=== PATIENT | female | born 1945 | race Caucasian/White ===

== ENCOUNTER → 2020-10-29 14:24 | Outpatient (ROUT) | payer MEDICARE, MEDICAID, SELFPAY ==
[2020-10-29 14:38] LABS: Appearance Urine UA SL CLOUDY; Bilirubin Urine UA NEGATIVE (NEGATIVE); Color Urine UA YELLOW; Glucose Urine UA NEGATIVE (Negative); Ketones Urine UA NEGATIVE (NEGATIVE); Leukocyte Esterase Urine UA 3+ (NEGATIVE); Nitrite Urine UA NEGATIVE (Negative); Occult Blood Urine UA 1+ (Negative); Protein Urine UA NEGATIVE (Negative); Urobilinogen Urine UA 0.2 E.U./dL (0.2)
[2020-10-29 14:47] LABS: RBC Urine >100/HPF (0-5/HPF)
[2020-10-29 14:48] LABS: Bacteria Urine Few (2-10); Culture Indicated Urine Specimen Cultured; WBC Urine 1-5/HPF (0-5/HPF)
== END ==
PROVIDERS: Visit Provider Internal Medicine
DX: R30.0 Dysuria (principal); R39.15 Urgency of urination; R35.0 Frequency of micturition
CPT/HCPCS: 81001; 87086

== ENCOUNTER → 2020-11-16 08:00 | Outpatient (ROUT) | payer MEDICARE, MEDICAID, SELFPAY ==
[2020-11-16 08:22] LABS: Add Manual Diff / Slide Review NO; Basophils Absolute Auto 0 /uL (0-100); Basophils Percent Auto 0.7 % (0-2); Eosinophils Absolute Auto 100 /uL (0-450); Eosinophils Percent Auto 2.1 % (2-4); Hemoglobin 14.5 g/dL (12.0-16.0); Lymphocytes Absolute Auto 1800 /uL (1100-4500); Lymphocytes Percent Auto 36.1 % (25-40); Mean Corpuscular Hemoglobin 32.9 PG (26-34); Mean Corpuscular Volume 99.7 fL (80-100); Monocytes Absolute Auto 400 /uL (0-900); Monocytes Percent Auto 7.6 % (3-14); Neutrophils Absolute Auto 2600 /uL (1500-7000); Neutrophils Percent Auto 53.5 % (50-75); Platelet Count 253 X10^3/uL (150-400); Red Blood Cell Count 4.42 X10^6/uL (4.0-5.2); White Blood Cell Count 4.9 X10^3/uL (4.5-11.0)
[2020-11-16 08:47] LABS: Alanine Aminotransferase 13 IU/L (<35); Albumin 4.1 g/dL (3.5-5.0); Albumin Globulin Ratio 1.5 (1.0-2.8); Alkaline Phosphatase 55 U/L (38-126); Aspartate Aminotransferase 28 IU/L (14-36); BUN Creatinine Ratio 18.2 (6-22); Bilirubin Total 0.8 mg/dL (0.2-1.3); Blood Urea Nitrogen 14 mg/dL (7-17); Calcium 9.2 mg/dL (8.4-10.2); Carbon Dioxide 30 mmol/L (22-32); Chloride 104 mmol/L (98-107); Cholesterol 105 mg/dL (140-199); Estimated Glomerular Filt Rate > 60.0 mL/min (>60); Globulin 2.8 g/dL (1.7-4.1); Glucose 86 mg/dL (80-110); HDL Cholesterol 41 mg/dL (40-60); HEMOLYSIS 17 (0-50); LDL Cholesterol Calculated 41 mg/dL (<100); Potassium 3.8 mmol/L (3.4-5.1); Sodium 138 mmol/L (137-145); Total Protein 6.9 g/dL (6.3-8.2); Triglycerides 113 mg/dL (35-150)
== END ==
PROVIDERS: Visit Provider Nurse Practitioner Family
DX: E78.5 Hyperlipidemia, unspecified (principal); I10 Essential (primary) hypertension; Z51.81 Encounter for therapeutic drug level monitoring
CPT/HCPCS: 36415; 80053; 80061; 85025

== ENCOUNTER → 2021-01-06 09:26 | Outpatient (CLI) | payer MEDICARE, MEDICAID, SELFPAY ==
--- NOTE | 2021-01-06 | DI.ECHO.S_ITS ---
[place] [facility] +---------+ : : [address] : [address] : : : : [id number] : : : : Phone: [phone] Echocardiogram Report + + :Name: CAT NEVAREZ Study Date: 01/06/2021 Height: 55 in : :[facility] ReadingLocation: Weight: 115 lb : : Gender: Female BSA: 1.4 m2 : :: 1945 Age: 75 yrs BP: 118/79 mmHg: :Reason For Study: ATRIAL FIBRILLATION : :Ordering Physician: MAGALI, : :BILL Performed By: Rashida Pablo : :Referring: BILL DE LOS SANTOS : + + Interpretation Summary Normal sinus rhythm. Normal left ventricular size and wall thickness with moderately reduced systolic function (EF 35-40%). Global hypokinesis with akinesis of inferolateral wall and basal inferior wall. Normal chamber sizes. Mild AI, otherwise no significant valvular abnormalities. Compared to prior study 05/11/2020 no changes have occurred. Procedure: A two-dimensional transthoracic echocardiogram with color flow and Doppler was performed. The study quality was technically adequate. Comparison is made with the echocardiogram of 03/21/2018. The patient was in sinus rhythm with heart rates between 58-62 bpm during the exam. Left Ventricle: The left ventricle is normal in size and wall thickness. The ejection fraction is estimated to be 40-45%. Right Ventricle: The right ventricle is normal in size and function. Atria: The left atrial size is normal. Right atrial size is normal. There is no Doppler evidence for an interatrial shunt. Mitral Valve: The mitral valve is normal in structure and function. There is mild mitral regurgitation. Aortic Valve: The aortic valve opens well. There is no aortic valve stenosis. There is mild aortic regurgitation. Tricuspid Valve: The tricuspid valve is normal in structure and function. There is mild tricuspid regurgitation. Pulmonary artery pressures cannot be estimated because of the lack of a measurable TR jet velocity but the IVC suggests a CVP of around 27 mmHg. Pulmonic Valve: The pulmonic valve is not well visualized. There is no pulmonic valvular regurgitation. Great Vessels: The aortic root is normal size. The ascending aorta is mildly enlarged. The IVC is of normal diameter and collapses greater than 50% with a sniff. This suggests a low right atrial pressure of 3 mm Hg. Pericardium/ Pleura There is no pericardial effusion. There is no pleural effusion. MMode/2D Measurements & Calculations LVIDd: 5.5 cm LVOT diam: 2.0 cm LVIDs: 4.4 cm Ao root diam: 3.4 cm FS: 20.1 % asc Aorta Diam: 3.9 cm IVSd: 1.2 cm Ao Arch Diam (Prox Trans): 2.6 cm LVPWd: 0.67 cm LV sahu. diameter/BSA (cm/m^2): 4.0 LV sys. diameter/BSA (cm/m^2): 3.2 LA A2 area: 15.6 cm2 RA long axis: 4.5 cm LA A4 area: 15.4 cm2 RA area: 10.5 cm2 LA length (vol): 5.0 cm RA vol: 20.7 ml LA vol: 41.2 ml RA : 15.0 ml/m2 LA vol index: 29.8 ml/m2 IVC diam: 1.4 cm RVD2 (mid): 2.8 cm TAPSE: 2.0 cm Doppler Measurements & Calculations Ao V2 max: 157.3 cm/sec LVOT Max Adrian: 84.6 cm/sec Ao V2 mean: 111.5 cm/sec LV V1 max P.9 mmHg Ao max P.9 mmHg LV V1 VTI: 19.5 cm Ao mean P.6 mmHg FRANCHESCA(I,D): 2.0 cm2 Ao V2 VTI: 31.4 cm FRANCHESCA(V,D): 1.7 cm2 sev ratio: 0.62 FRANCHESCA indexed to BSA (cm^2/m^2): 1.4 AI P1/2t: 844.1 msec AI dec slope: 131.7 cm/sec2 MV E max adrian: 41.4 cm/sec TR max adrian: 243.8 cm/sec MV A max adrian: 82.6 cm/sec TR max P.8 mmHg MV E/A: 0.50 PA V2 max: 114.4 cm/sec Med Peak E' Adrian: 4.6 cm/sec PA V2 mean: 77.0 cm/sec E/E' med: 9.0 PA mean P.7 mmHg Lat Peak E' Adrian: 5.3 cm/sec PA pr(Accel): 39.6 mmHg E/E' lat: 7.9 E/e' average: 8.5 MV dec time: 0.26 sec SV(LVOT): 62.8 ml Electronically signed by: Andie Huitron M.D. on Reading Physician:01/07/2021 12:19 AM
== END ==
PROVIDERS: PCP Nurse Practitioner Gerontology; Referring Provider Nurse Practitioner Gerontology; Visit Provider Nurse Practitioner Gerontology
DX: I08.3 Combined rheumatic disorders of mitral, aortic and tricuspid valves (principal); I48.91 Unspecified atrial fibrillation; I42.8 Other cardiomyopathies; I73.9 Peripheral vascular disease, unspecified; I77.89 Other specified disorders of arteries and arterioles
CPT/HCPCS: 93306

== ENCOUNTER 2021-05-02 12:56 | Observation (INO) | payer MEDICARE, MEDICAID, SELFPAY ==
[2021-05-02] VITALS (9 sets, daily range): BP systolic 130–162; BP diastolic 63–96; PULSE 80–101; RESP 18–24; TEMP 36–38.8; O2SAT 94–100; BMI 24.5
--- NOTE | 2021-05-02 12:56 | DI.CT.S_ITS ---
PROCEDURE: CT ANGIO HEAD AND NECK INDICATIONS: code stroke TECHNIQUE: Pre-contrast 4.5 mm thick sections acquired from the foramen magnum to the vertex. After the administration of intravenous contrast, 1 mm thick sections acquired from the aortic arch through the [place]. Post-contrast 4.5 mm thick sections then re-acquired from the foramen magnum to the vertex. 3-dimensional fnizlop-xsblulqut-ulpyihokjq (MIP) and/or volume rendering reformats were acquired of the central intracranial vasculature and neck separately. COMPARISON: [facility], CT, CT STROKE, 05/02/2021, 12:59. FINDINGS: Image quality: Excellent. BRAIN: CSF spaces: There is ex vacuo dilatation seen of the right lateral ventricle. Basal cisterns are patent. No extra-axial fluid collections. Brain: Volume loss is again seen within the right frontal lobe. Small remote infarcts can be seen involving the left basal ganglia, including the left caudate head. No midline shift. No intracranial bleeds or masses. Grimes-white matter interface appears intact. Skull and face: Calvarium and facial bones appear intact, without suspicious lesions. Orbits appear normal. Sinuses: Sinuses and mastoids are clear. HEAD CT ANGIOGRAPHY: Anterior circulation: Intracranial internal carotid arteries are normal in size and flow. The flow within the paired anterior cerebral arteries is normal and symmetric. The flow within the middle cerebral arteries is normal and symmetric. The anterior communicating artery is seen. No aneurysms are seen. Posterior circulation: Visualized portions of the vertebral arteries demonstrate normal caliber, and join to form a normal appearing basilar artery. Flow within the posterior cerebral arteries is normal and symmetric. No aneurysms are seen. NECK CT ANGIOGRAPHY: Carotid system: The great vessels demonstrate a conventional anatomy as they arise from the aortic arch. The origins of the common carotid arteries appear patent. The common carotid arteries demonstrate normal caliber and courses. The bifurcation regions are both widely patent. The internal carotid arteries demonstrate normal calibers and courses. Posterior circulation: The origins of the vertebral arteries both appear widely patent. The more superior extracranial portions of both vertebral arteries also demonstrate normal courses and calibers. They join to form a normal appearing basilar artery. Soft tissues: Visualized neck soft tissues demonstrate no suspicious abnormalities. Bones: No suspicious bony lesions. Visualized cervical spine appears normally aligned. Moderate to prominent cervical spine degenerative changes are seen. IMPRESSION: No significant intracranial arterial abnormality is seen. Within the arteries of the neck, no hemodynamically significant stenosis can be seen. Remote right frontal lobe infarction, with volume loss and associated ex vacuo dilatation of the right lateral ventricle. Small remote infarcts can be seen involving the left basal ganglia, including the left caudate head. Incidental note is made of: At least moderate cervical spine degenerative change Any quantitative measurements of stenosis were performed using NASCET criteria. Dictated by: Praveen Coulter M.D. on 05/02/2021 at 12:37 Approved by: Praveen Coulter M.D. on 05/02/2021 at 12:42
--- NOTE | 2021-05-02 12:56 | DI.CT.S_ITS ---
PROCEDURE: CT STROKE INDICATIONS: code stroke TECHNIQUE: Noncontrast 4.5 mm thick angled axial sections acquired from the foramen magnum to the vertex, with coronal reformats. For radiation dose reduction, the following was used: automated exposure control, adjustment of mA and/or kV according to patient size. COMPARISON: None. FINDINGS: Image quality: Excellent. CSF spaces: Basal cisterns are patent. No extra-axial fluid collections. Anterior horn of the right lateral ventricle is prominent which could represent presence of intraventricular arachnoid cyst, congenital asymmetry or sequela of old right frontal infarct. Brain: No intracranial bleeds or masses. Small chronic lacunar infarcts noted in the basal ganglia, the left internal capsule in the left caudate head. There is mild cerebral volume loss for age, with resultant ventricular and sulcal prominence. There are severe periventricular and deep white matter chronic small vessel ischemic changes. There is intracranial internal carotid artery and vertebral artery atherosclerosis. Skull and face: Calvarium and visualized facial bones appear intact, without suspicious lesions. Sinuses: Visualized sinuses and mastoids are clear. IMPRESSION: 1. No acute intracranial disease process. 2. Findings telephoned to Dr. Farrell on May 02, 2021 at 1:22 p.m. This study fulfills neurological imaging criteria for inclusion or exclusion of acute stroke therapies based on available published neurological guidelines. Dictated by: Flaca Man MD, PhD on 05/02/2021 at 13:24 Approved by: Flaca Man MD, PhD on 05/02/2021 at 13:29
[2021-05-02 13:13] LABS: Add Manual Diff / Slide Review NO; Basophils Absolute Auto 0 /uL (0-100); Basophils Percent Auto 0.5 % (0-2); Eosinophils Absolute Auto 100 /uL (0-450); Eosinophils Percent Auto 1.1 % (2-4); Hematocrit 44.8 % (36-46); Hemoglobin 15.6 g/dL (12.0-16.0); Lymphocytes Absolute Auto 1900 /uL (1100-4500); Lymphocytes Percent Auto 25.1 % (25-40); Mean Corpuscular HGB Conc 34.8 % (30-36); Mean Corpuscular Volume 97.8 fL (80-100); Monocytes Absolute Auto 500 /uL (0-900); Monocytes Percent Auto 7.2 % (3-14); Neutrophils Absolute Auto 5100 /uL (1500-7000); Neutrophils Percent Auto 66.1 % (50-75); Platelet Count 300 X10^3/uL (150-400); Red Blood Cell Count 4.58 X10^6/uL (4.0-5.2); Red Cell Distribution Width 13.2 % (11.6-14.8); White Blood Cell Count 7.7 X10^3/uL (4.5-11.0)
--- NOTE | 2021-05-02 13:17 | ED_ITS ---
HPI - General Adult General Chief complaint: Neuro Symptoms/Deficit Stated complaint: code Stroke Time Seen by Provider: 05/02/21 12:56 Source: EMS Mode of arrival: EMS Limitations: altered mental status History of Present Illness HPI narrative: Patient is a 75-year-old female who arrived as a code stroke. Has reported that at noon today was her last known normal. She was at a nursing facility. Unsure as to why she was at this facility. She was scheduled to be discharged today. The nursing staff went back into her room and fell the patient mumbling and not making sense. EMS was called. Blood sugar greater than 100 prior to arrival. No family at bedside. Related Data Home Medications Medication Instructions Recorded Confirmed acetaminophen 325 mg tablet 325 mg PO Q6HR PRN 05/02/21 05/02/21 alendronate 70 mg tablet 70 mg PO WEEKLY 05/02/21 05/02/21 apixaban 5 mg tablet (Eliquis) 5 mg PO BID 05/02/21 05/02/21 atorvastatin 40 mg tablet 40 mg PO DAILY 05/02/21 05/02/21 carvedilol 6.25 mg tablet 6.25 mg PO BID 05/02/21 05/02/21 docusate sodium 100 mg capsule 100 mg PO BID 05/02/21 05/02/21 famotidine 20 mg tablet 20 mg PO BID 05/02/21 05/02/21 ferrous sulfate 325 mg (65 mg 325 mg PO DAILY 05/02/21 05/02/21 iron) tablet (FeroSul) lisinopril 5 mg tablet 5 mg PO DAILY 05/02/21 05/02/21 oxybutynin chloride 5 mg tablet 5 mg PO BID 05/02/21 05/02/21 polyethylene glycol 3350 17 17 g PO DAILY PRN 05/02/21 05/02/21 gram/dose oral powder tramadol 50 mg tablet 50 mg PO BID PRN 05/02/21 05/02/21 trazodone 50 mg tablet 25 mg PO BEDTIME 05/02/21 05/02/21 Allergies Allergy/AdvReac Type Severity Reaction Status Date / Time No Known Drug Allergies Allergy Verified 05/02/21 16:54 Review of Systems Review of Systems ROS Unobtainable: Unobtainable due to mental condition Patient History Social History Smoking Status: Never smoker alcohol intake: never Exam Initial Vital Signs Initial Vital Signs: Vital Signs Temperature 96.8 F L 05/02/21 12:55 Pulse Rate 80 05/02/21 12:55 Respiratory Rate 20 05/02/21 12:55 Blood Pressure 137/65 05/02/21 12:55 Pulse Oximetry 100 05/02/21 12:55 HENMT Head: normal to inspection and normocephalic Eyes General: appearance normal, both eyes and all related structures Pupils: PERRL Resp Effort & Inspection: normal respiratory effort Auscultation: clear to auscultation bilaterally Cardio Rate: regular rate Rhythm: regular rhythm GI Inspection: normal to inspection and non-distended Skin General: no rashes or lesions noted Neuro General: patient awake, moves all extremities and patient confused Cognition: abnormal cognition Speech: abnormal speech Extrem General: normal to inspection and No edema Psych Appearance: grossly normal and well kempt Scores GCS Dulce coma scale eye opening: Spontaneous Dulce coma scale verbal response: Words [place] coma scale motor response: Localising Dulce coma scale total score: 12 Course Orders Ordered: ED Orders 05/02/21 12:[address] angio head and neck Stat 05/02/21 13:09 Complete Blood Count AUTO DIFF Stat Comprehensive Metabolic Panel Stat Ethanol (ETOH) Stat Lipase Stat Magnesium Stat Partial Thromboplastin Time Stat Prothrombin Time INR Stat 05/02/21 13:14 EKG-12 Lead Stat 05/02/21 13:19 COVID19 -Nasal swab/Pre-Proc Stat Acetaminophen (Acetaminophen 650 Mg Supp) 650 mg DC Q4HR PRN PRN Reason: Fever/Mild Pain (1-3) Aspirin (Aspirin 300 Mg Supp) 300 mg DC DAILY DANNY Last Admin: 05/02/21 17:16 Dose: 300 mg Documented by: CPETRIC Aspirin (Aspirin Ec 81 Mg Tablet) 81 mg PO DAILY [facility] Atorvastatin Calcium (Atorvastatin 20 Mg Tablet) 80 mg PO BEDTIME [facility] Enoxaparin Sodium (Enoxaparin 40 Mg/0.4 Ml Syringe) 40 mg SUBCUT DAILY [facility] Haloperidol (Haloperidol 5 Mg/Ml Vial) 2 mg IV Q4HR PRN PRN Reason: Agitation Lorazepam (Lorazepam 2 Mg/Ml Inj) 0.5 mg IV Q4HR PRN PRN Reason: Anxiety Last Admin: 02/21/22 17:16 Dose: 0.5 mg Documented by: CPETRIC Ondansetron HCl (Ondansetron 4 Mg/2 Ml Inj) 4 mg IV Q8HR PRN PRN Reason: Nausea And Vomiting Sodium Chloride (Sodium Chloride 0.9% Flush) 10 ml IV PRN PRN PRN Reason: Flush Last Admin: 05/02/21 17:26 Dose: 10 ml Documented by: CPETRIC Sodium Chloride (Sodium Chloride 0.9% Flush) 10 ml IV BID DANNY Discontinued Medications Sodium Chloride (Normal Saline 0.9%) 1,000 mls @ 125 mls/hr IV CONT DANNY Last Admin: 05/02/21 16:58 Dose: Not Given Documented by: CPETRIC Vital Signs Vital signs: Vital Signs - 8 hr 05/02/21 12:55 05/02/21 14:17 Temperature 96.8 F L Pulse Rate 80 93 H Respiratory Rate 20 20 Blood Pressure 137/65 150/96 H Pulse Oximetry 100 99 Medical Decision Making Lab Data Lab results reviewed: Yes I reviewed the patient's lab results. Result diagrams: 05/02/21 13:09 05/02/21 13:09 Labs: Lab Results 05/02/21 05/02/21 05/02/21 Range/Units 13:09 13:09 13:09 WBC 7.7 (4.5-11.0) X10^3/uL RBC 4.58 (4.0-5.2) X10^6/uL Hgb 15.6 (12.0-16.0) g/dL Hct 44.8 (36-46) % MCV 97.8 (80-100) fL MCH 34.0 (26-34) PG MCHC 34.8 (30-36) % RDW 13.2 (11.6-14.8) % Plt Count 300 (150-400) X10^3/uL Neut % (Auto) 66.1 (50-75) % Lymph % (Auto) 25.1 (25-40) % [place] % (Auto) 7.2 (3-14) % Eos % (Auto) 1.1 L (2-4) % Baso % (Auto) 0.5 (0-2) % Neut # (Auto) 5100 (2201-2157) /uL Lymph # (Auto) 1900 (5908-1472) /uL [place] # (Auto) 500 (0-900) /uL Eos # (Auto) 100 (0-450) /uL Baso # (Auto) 0 (0-100) /uL PT 13.6 H (10.1-12.7) SECONDS INR 1.2 (0.9-1.3) APTT 41 H (26.4-36.2) SECONDS Sodium 137 (137-145) mmol/L Potassium 3.9 (3.4-5.1) mmol/L Chloride 102 (98-107) mmol/L Carbon Dioxide 29 (22-32) mmol/L BUN 15 (7-17) mg/dL Creatinine 0.84 (0.52-1.04) mg/dL Estimated GFR > 60.0 (>60) mL/min BUN/Creatinine Ratio 17.9 (6-22) Glucose 116 H (80-110) mg/dL Calcium 9.7 (8.4-10.2) mg/dL Magnesium (1.6-2.3) mg/dL Total Bilirubin 0.9 (0.2-1.3) mg/dL AST 35 (14-36) IU/L ALT 24 (<35) IU/L Alkaline Phosphatase 87 (38-126) U/L Total Protein 8.1 (6.3-8.2) g/dL Albumin 4.6 (3.5-5.0) g/dL Globulin 3.5 (1.7-4.1) g/dL Albumin/Globulin Ratio 1.3 (1.0-2.8) Lipase (23-300) U/L Ethyl Alcohol < 10 ( - 10) mg/dL SARS-CoV-2 (PCR) (Negative) 05/02/21 05/02/21 Range/Units 13:09 13:19 WBC (4.5-11.0) X10^3/uL RBC (4.0-5.2) X10^6/uL Hgb (12.0-16.0) g/dL Hct (36-46) % MCV (80-100) fL MCH (26-34) PG MCHC (30-36) % RDW (11.6-14.8) % Plt Count (150-400) X10^3/uL Neut % (Auto) (50-75) % Lymph % (Auto) (25-40) % [place] % (Auto) (3-14) % Eos % (Auto) (2-4) % Baso % (Auto) (0-2) % Neut # (Auto) (5319-9728) /uL Lymph # (Auto) (1614-4733) /uL [place] # (Auto) (0-900) /uL Eos # (Auto) (0-450) /uL Baso # (Auto) (0-100) /uL PT (10.1-12.7) SECONDS INR (0.9-1.3) APTT (26.4-36.2) SECONDS Sodium (137-145) mmol/L Potassium (3.4-5.1) mmol/L Chloride (98-107) mmol/L Carbon Dioxide (22-32) mmol/L BUN (7-17) mg/dL Creatinine (0.52-1.04) mg/dL Estimated GFR (>60) mL/min BUN/Creatinine Ratio (6-22) Glucose (80-110) mg/dL Calcium (8.4-10.2) mg/dL Magnesium 2.1 (1.6-2.3) mg/dL Total Bilirubin (0.2-1.3) mg/dL AST (14-36) IU/L ALT (<35) IU/L Alkaline Phosphatase (38-126) U/L Total Protein (6.3-8.2) g/dL Albumin (3.5-5.0) g/dL Globulin (1.7-4.1) g/dL Albumin/Globulin Ratio (1.0-2.8) Lipase 84 (23-300) U/L Ethyl Alcohol ( - 10) mg/dL SARS-CoV-2 (PCR) Negative (Negative) Point of Care Testing Glucose POC 92 Point of care testing: Point of Care Testing Glucose POC [address] scan - head: Radiologist's Impression: [address] [address] [address] Scan Report Signed Patient: Johanne Reynolds MR#: [id number] : 1945 Acct:[id number] Age/Sex: 75 / F Date of Service: 05/02/21 Loc: 208-1 Accession Number: [id number] ?? Procedure: CT Stroke Ordering Provider: Ld Farrell D.O. PROCEDURE:? CT STROKE ? INDICATIONS:? code stroke ? TECHNIQUE:? Noncontrast 4.5 mm thick angled axial sections acquired from the foramen magnum to the vertex, with coronal reformats.? For radiation dose reduction, the following was used:? automated exposure control, adjustment of mA and/or kV according to patient size.? ? COMPARISON:? None. ? FINDINGS:? Image quality:? Excellent.? ? CSF spaces:? Basal cisterns are patent.? No extra-axial fluid collections.? Anterior horn of the right lateral ventricle is prominent which could represent presence of intraventricular arachnoid cyst, congenital asymmetry or sequela of old right frontal infarct. ? Brain:? No intracranial bleeds or masses.? Small chronic lacunar infarcts noted in the basal ganglia, the left internal capsule in the left caudate head.? There is mild cerebral volume loss for age, with resultant ventricular and sulcal prominence.? There are severe periventricular and deep white matter chronic small vessel ischemic changes.? There is intracranial internal carotid artery and vertebral artery atherosclerosis.? ? Skull and face:? Calvarium and visualized facial bones appear intact, without suspicious lesions.? ? Sinuses:? Visualized sinuses and mastoids are clear.? ? ? IMPRESSION:? ? 1. No acute intracranial disease process.? ? 2. Findings telephoned to Dr. Farrell on May 02, 2021 at 1:22 p.m.? ? ? This study fulfills neurological imaging criteria for inclusion or exclusion of acute stroke therapies based on available published neurological guidelines.? ? ? Dictated by: Flaca Mna MD, PhD on 05/02/2021 at 13:24 ? ? Approved by: Flaca Man MD, PhD on 05/02/2021 at 13:29? CTA - brain/neck: Radiologist's Impression: [address] [address] [address] Scan Report Signed Patient: Johanne Reynolds MR#: [id number] : 1945 Acct:[id number] Age/Sex: 75 / F Date of Service: 05/02/21 Loc: 208-1 Accession Number: [id number] ?? Procedure: CT angio head and neck Ordering Provider: Ld Farrell D.O. PROCEDURE:? CT ANGIO HEAD AND NECK ? INDICATIONS:? code stroke ? TECHNIQUE:? Pre-contrast 4.5 mm thick sections acquired from the foramen magnum to the vertex.? After the administration of intravenous contrast, 1 mm thick sections acquired from the aortic arch through the [place].? Post-contrast 4.5 mm thick sections then re- acquired from the foramen magnum to the vertex.? 3-dimensional itmyokc-hyvzmxfry-ylxjwpakii (MIP) and/or volume rendering reformats were acquired of the central intracranial vasculature and neck separately. ? COMPARISON:? [facility], CT, CT STROKE, 05/02/2021, 12:59. ? FINDINGS:? Image quality:? Excellent.? ? BRAIN:? CSF spaces:? There is ex vacuo dilatation seen of the right lateral ventricle.? Basal cisterns are patent.? No extra-axial fluid collections.? ? Brain:? Volume loss is again seen within the right frontal lobe.? Small remote infarcts can be seen involving the left basal ganglia, including the left caudate head.? No midline shift.? No intracranial bleeds or masses.? [place]imes-white matter interface appears intact.? ? Skull and face:? Calvarium and facial bones appear intact, without suspicious lesions.? Orbits appear normal.? ? Sinuses:? Sinuses and mastoids are clear.? ? HEAD CT ANGIOGRAPHY:? Anterior circulation:? Intracranial internal carotid arteries are normal in size and flow.? The flow within the paired anterior cerebral arteries is normal and symmetric.? The flow within the middle cerebral arteries is normal and symmetric.? The anterior communicating artery is seen.? No aneurysms are seen.? ? Posterior circulation:? Visualized portions of the vertebral arteries demonstrate normal caliber, and join to form a normal appearing basilar artery.? Flow within the posterior cerebral arteries is normal and symmetric.? No aneurysms are seen.? ? NECK CT ANGIOGRAPHY:? Carotid system:? The great vessels demonstrate a conventional anatomy as they arise from the aortic arch.? The origins of the common carotid arteries appear patent.? The common carotid arteries demonstrate normal caliber and courses.? The bifurcation regions are both widely patent.? The internal carotid arteries demonstrate normal calibers and courses.? ? Posterior circulation:? The origins of the vertebral arteries both appear widely patent.? The more superior extracranial portions of both vertebral arteries also demonstrate normal courses and calibers.? They join to form a normal appearing basilar artery.? ? Soft tissues:? Visualized neck soft tissues demonstrate no suspicious abnormalities.? ? Bones:? No suspicious bony lesions.? Visualized cervical spine appears normally aligned.? Moderate to prominent cervical spine degenerative changes are seen. ? ? ? IMPRESSION:? No significant intracranial arterial abnormality is seen.? ? Within the arteries of the neck, no hemodynamically significant stenosis can be seen. ? ? Remote right frontal lobe infarction, with volume loss and associated ex vacuo dilatation of the right lateral ventricle.? Small remote infarcts can be seen involving the left basal ganglia, including the left caudate head. ? ? ? Incidental note is made of: At least moderate cervical spine degenerative change ? Any quantitative measurements of stenosis were performed using NASCET criteria.? ? ? Dictated by: Praveen Coulter M.D. on 05/02/2021 at 12:37 ? ? Approved by: Praveen Coulter M.D. on 05/02/2021 at 12:42? ECG Data Attestation: I personally reviewed and interpreted this ECG as follows: Interpretation: Sinus rhythm Ventricular rate 80 Left axis deviation LVH Nonspecific ST T wave changes MDM Narrative Medical decision making narrative: According to the medical record that came with the patient she is on Eliquis and appeared to receive a dose of it this morning. Patient not eligible for tPA given this. Unable to obtain an NIH scale secondary to the patient's ability/willingness to participate. Unsure whether this is a receptive issue or expressive issue. She is moving all 4 extremities but will not follow commands. She does appear to be making purposeful movements she is grabbing at the railing of the gurney. Patient only states the words ?yes ?and yup?when asked questions. Head CT is unremarkable. CTA shows no acute pathology. Labs unremarkable. EKG unremarkable. There is no specific diagnosis of seizures in the past and this would be a very unusual presentation of a postictal state. There is no signs of any trauma. No signs of intracerebral hemorrhage. She is afebrile. Low suspicion for meningitis. Consider toxic ingestions however her workup for this is unremarkable. I did discuss the case with the patient's daughter who was in route to the hospital and is several hours away. Patient is a full code per the daughter and a PLOST was faxed us from the nursing facility which showed full code but also had ?limited interventions ?check madhu. Discussed the case with Dr. Willoughby. We will admit for further evaluation treatment. Discharge Plan Departure Patient Disposition: Admitted As Inpatient Clinical Impression: Acute alteration in mental status Admit Date/Time: 05/02/21 14:44 Admit Provider: Chad Willoughby
[2021-05-02 13:19] LABS: INR 1.2 (0.9-1.3); Prothrombin Time 13.6 SECONDS (10.1-12.7)
[2021-05-02 13:22] LABS: PTT Partial Thromboplastin Tim 41 SECONDS (26.4-36.2)
[2021-05-02 13:34] LABS: Alanine Aminotransferase 24 IU/L (<35); Albumin 4.6 g/dL (3.5-5.0); Albumin Globulin Ratio 1.3 (1.0-2.8); Alkaline Phosphatase 87 U/L (38-126); Aspartate Aminotransferase 35 IU/L (14-36); BUN Creatinine Ratio 17.9 (6-22); Bilirubin Total 0.9 mg/dL (0.2-1.3); Blood Urea Nitrogen 15 mg/dL (7-17); Calcium 9.7 mg/dL (8.4-10.2); Carbon Dioxide 29 mmol/L (22-32); Chloride 102 mmol/L (98-107); Estimated Glomerular Filt Rate > 60.0 mL/min (>60); Ethanol (ETOH) < 10 mg/dL; Globulin 3.5 g/dL (1.7-4.1); Glucose 116 mg/dL (80-110); HEMOLYSIS 16 (0-50); Potassium 3.9 mmol/L (3.4-5.1); Sodium 137 mmol/L (137-145); Total Protein 8.1 g/dL (6.3-8.2)
[2021-05-02 13:39] LABS: Lipase 84 U/L (23-300); Magnesium 2.1 mg/dL (1.6-2.3)
[2021-05-02 13:57] LABS: COVID19 -Nasal RAPID Negative (Negative)
--- NOTE | 2021-05-02 14:08 | PC.NURSE ---
spoke with daughter justin and had her speak to dr jackson. she is driving up from [place].
--- NOTE | 2021-05-02 15:20 | PC.NURSE ---
pt unable to follow commands, pt moves about freely in the bed. unable to assess gaze. pt constantly looking around, not following commands.
--- NOTE | 2021-05-02 15:29 | PC.NURSE ---
1330 pt purposeful at reaching and moving items, but does not follow commands. pt tracks people and items but does not follow commands. pt able to localize pain appropriate ie when I removed pulse ox sticker from index finger and pt responded by saying ouch. pt does say ouch and ok clear, not slurred.
--- NOTE | 2021-05-02 16:24 | PM.HP.1 ---
History of Present Illness History of Present Illness Date Patient Seen: 05/02/21 Time Patient Seen: 15:00 Chief complaint: code Stroke Narrative: Ms. Reynolds is a 75W who presented to the hospital with acute neurologic change. She had been at a facility. She was doing well and plan was to possibly discharge her home within a day. She was seen normal at noon, and then within an hour she was noted to be acute altered. She was unable to follow commands. She was speaking incoherently. She was brought in to the hospital. In the ED workup was done, she was noted to have mild hypertension initially. She was a code stroke. CT head showed large right ventricle secondary to ex vacuo dilation per ED report. There was evidence of old stroke, no evidence of acute ischemia. CT angio head/neck showed no acute large vessel disease. Labs notable for WBC 7.7, hgb 15.6, creatinine 0.84. She was ordered for aspirin and admitted for further treatment. Past medical history: to be obtained Social history: not able to obtain due to encephalopathy Family history: not able to obtain due to encephalopathy Meds Home Medications and Allergies Home Medications Medication Instructions Recorded Confirmed Type acetaminophen 325 mg tablet 325 mg PO Q6HR PRN 05/02/21 05/02/21 History alendronate 70 mg tablet 70 mg PO WEEKLY 05/02/21 05/02/21 History apixaban 5 mg tablet (Eliquis) 5 mg PO BID 05/02/21 05/02/21 History atorvastatin 40 mg tablet 40 mg PO DAILY 05/02/21 05/02/21 History carvedilol 6.25 mg tablet 6.25 mg PO BID 05/02/21 05/02/21 History docusate sodium 100 mg capsule 100 mg PO BID 05/02/21 05/02/21 History famotidine 20 mg tablet 20 mg PO BID 05/02/21 05/02/21 History ferrous sulfate 325 mg (65 mg 325 mg PO DAILY 05/02/21 05/02/21 History iron) tablet (FeroSul) lisinopril 5 mg tablet 5 mg PO DAILY 05/02/21 05/02/21 History oxybutynin chloride 5 mg tablet 5 mg PO BID 05/02/21 05/02/21 History polyethylene glycol 3350 17 17 g PO DAILY PRN 05/02/21 05/02/21 History gram/dose oral powder tramadol 50 mg tablet 50 mg PO BID PRN 05/02/21 05/02/21 History trazodone 50 mg tablet 25 mg PO BEDTIME 05/02/21 05/02/21 History Allergies Allergy/AdvReac Type Severity Reaction Status Date / Time No Known Drug Allergies Allergy Verified 05/02/21 16:54 Review of Systems Review of Systems Narrative: Unable to obtain due to encephalopathy Exam Vital Signs (past 8 hours): - 05/02/21 12:55 05/02/21 14:17 Temperature 96.8 F L Pulse Rate 80 93 H Respiratory Rate 20 20 Blood Pressure 137/65 150/96 H Pulse Oximetry 100 99 Oxygen Delivery Method Room Air Narrative Exam Narrative: GEN: patient lying in bed, hyperactive, confused, repetitive hand movements, can't sit still HEENT: moist mucous membranes, PERRL NECK: trachea midline, no JVD CV: regular rate and rhythm, no murmurs PULM: clear bilaterally ABD: soft, nontender, nondistended, no organomegaly, normal bowel sounds EXT: warm and well perfused with no edema NEURO: confused, not following commands, significant picking type movements of hands, hyperactive, moving all extremities, occasionally can respond appropriately to a question verbally with clear speech but mostly speech is garbled SKIN: no rashes noted Objective Labs Result Diagrams: 05/02/21 13:09 05/02/21 13:09 Labs: Laboratory Results - last 24 hr 05/02/21 05/02/21 05/02/21 13:09 13:09 13:09 WBC 7.7 RBC 4.58 Hgb 15.6 Hct 44.8 MCV 97.8 MCH 34.0 MCHC 34.8 RDW 13.2 Plt Count 300 Neut % (Auto) 66.1 Lymph % (Auto) 25.1 [place] % (Auto) 7.2 Eos % (Auto) 1.1 L Baso % (Auto) 0.5 Neut # (Auto) 5100 Lymph # (Auto) 1900 [place] # (Auto) 500 Eos # (Auto) 100 Baso # (Auto) 0 PT 13.6 H INR 1.2 APTT 41 H Sodium 137 Potassium 3.9 Chloride 102 Carbon Dioxide 29 BUN 15 Creatinine 0.84 Estimated GFR > 60.0 BUN/Creatinine Ratio 17.9 Glucose 116 H Calcium 9.7 Magnesium Total Bilirubin 0.9 AST 35 ALT 24 Alkaline Phosphatase 87 Total Protein 8.1 Albumin 4.6 Globulin 3.5 Albumin/Globulin Ratio 1.3 Lipase Ethyl Alcohol < 10 SARS-CoV-2 (PCR) 05/02/21 05/02/21 13:09 13:19 WBC RBC Hgb Hct MCV MCH MCHC RDW Plt Count Neut % (Auto) Lymph % (Auto) [place] % (Auto) Eos % (Auto) Baso % (Auto) Neut # (Auto) Lymph # (Auto) [place] # (Auto) Eos # (Auto) Baso # (Auto) PT INR APTT Sodium Potassium Chloride Carbon Dioxide BUN Creatinine Estimated GFR BUN/Creatinine Ratio Glucose Calcium Magnesium 2.1 Total Bilirubin AST ALT Alkaline Phosphatase Total Protein Albumin Globulin Albumin/Globulin Ratio Lipase 84 Ethyl Alcohol SARS-CoV-2 (PCR) Negative Assessment & Plan Assessment & Plan narrative: Ms. Reynolds presented to the hospital with acute neurologic change 1. Acute encephalopathy -etiology not clear -labs are reassuring -CT head shows no acute bleed -no evidence of acute stroke on CT head, no large vessel occlusion on CT angio head/neck -ordered labs for urinalysis, tsh, urine drug screen, ammonia level -CT head did show read of ex vacuo dilation of right lateral ventricle -no fevers, no leukocytosis, no known ingestion, no known changes to medications, no pain currently to try to further localize etiology -still has suspicion for CVA, ordered for MRI -follow up above results 2. History of CVA -ordered for aspirin, statin -NIH qshift -PT/OT ordered 3. Hypertension -hold anti-hypertensives for now and restart if patient safe to swallow 4. Hyperlipidemia -continue statin 5. Osteoporosis -hold alendronate 6. Anticoagulated -reason unclear -attempting to get more records -not in afib on initial EKG CODE: Per POL ok for CPR, no to intubation, will need this clarified Proxy: per notes Debbie Loza, daughter I have utilized all available resources to reconcile patient's home medications. Time Spent With Patient Critical Care time: I spent a total of [] minutes of critical care time on this patient's care today; this time is exclusive of procedural time. Quality MIPS - Admit I confirm the patient?s Advance Care Plan is present, Code status is documented, Surrogate decision maker is in patient?s record [If Yes, STOP here]: Yes
[2021-05-02] MEDS: LORazepam 2 MG/ML INJ 0.5 MG IV (17:16)
[2021-05-02] MEDS: ASPIRIN 300 MG SUPP PR (17:16)
[2021-05-02 17:19] LABS: Acetaminophen < 10 ug/mL (10-30); Ammonia (NH3) < 9 umol/L (9-30); Salicylate < 1.0 mg/dL (<20)
[2021-05-02] MEDS: SODIUM CHLORIDE 0.9% FLUSH 10 ML IV ×2 (17:26→21:17)
[2021-05-02 17:51] LABS: Thyroid Stimulating Hormone 0.587 uIU/mL (0.47-4.68)
[2021-05-02 18:14] LABS: Appearance Urine UA CLEAR; Bilirubin Urine UA NEGATIVE (NEGATIVE); Color Urine UA YELLOW; Glucose Urine UA NEGATIVE (Negative); Ketones Urine UA TRACE (NEGATIVE); Leukocyte Esterase Urine UA NEGATIVE (NEGATIVE); Nitrite Urine UA NEGATIVE (Negative); Occult Blood Urine UA TRACE-INTACT (Negative); Protein Urine UA NEGATIVE (Negative); Specific Gravity Urine UA 1.015 (1.000-1.035); Urobilinogen Urine UA 0.2 E.U./dL (0.2)
[2021-05-02 18:23] LABS: UR Morphine/Opiate cutoff 300 Negative (Negative); Ur Creatinine Normal (Normal); Ur Specific Gravity Normal (Normal); Urine Amphetamines Negative (Negative); Urine Barbiturates Negative (Negative); Urine Benzodiazepines Negative (Negative); Urine Cocaine Negative (Negative); Urine MDMA Negative (Negative); Urine Methadone Negative (Negative); Urine Methamphetamines Negative (Negative); Urine Oxycodone Negative (Negative); Urine Phencyclidine Negative (Negative); Urine Tetrahydrocannabinol Negative (Negative); Urine Tricyclic Antidepressant Negative (Negative); Urine pH Normal (Normal)
--- NOTE | 2021-05-02 18:31 | DI.RAD.S_ITS ---
PROCEDURE: XR CHEST 1V INDICATIONS: fever TECHNIQUE: One view of the chest was acquired. COMPARISON: None. FINDINGS: Surgical changes and devices: None. Lungs and pleura: Lungs are clear. No pleural effusions or pneumothorax. Mediastinum: Mediastinal contours appear normal. Heart size is normal. Bones and chest wall: No suspicious bony lesions. Overlying soft tissues appear unremarkable. IMPRESSION: No evidence acute pulmonary process. Dictated by: Florentin Li M.D. on 05/02/2021 at 20:14 Approved by: Florentin Li M.D. on 05/02/2021 at 20:14
[2021-05-02 19:02] LABS: pH Urine UA 8.5 (4.5-8.0)
[2021-05-02 19:05] LABS: Bacteria Urine None Seen; Culture Indicated Urine Cult Not Indicated; RBC Urine None Seen (0-5/HPF); WBC Urine None Seen (0-5/HPF)
[2021-05-02] MEDS: ACETAMINOPHEN 650 MG SUPP PR (19:11)
[2021-05-02 19:13] LABS: Lactate (Lactic Acid) 2.6 mmol/L (0.7-2.1)
[2021-05-02] MEDS: SODIUM CHLORIDE 0.9% 1,000 ML 100 ML IV (19:46)
[2021-05-02] MEDS: DEXAMETHASONE 10 MG/ML VIAL 8 MG IV (19:50)
[2021-05-02] MEDS: HALOPERIDOL 5 MG/ML VIAL 2 MG IV (19:52)
--- NOTE | 2021-05-02 19:55 | PC.NURSE ---
Addendum entered by Michael Veliz R.N. 05/02/21 20:07: Tylenol suppository given for fever as ordered. Cheeks continue to be flushed and warm. Multiple new orders placed by , report given to evening shift RN to assume care. Original Note: 1540 Patient admitted from ER to room 208. Patient is unable to follow any commands, occasional word salad or the work 'OK, unable to follow directions. Patient was incontinent of urine, brief changed with 2PA. Keep NPO at this time per bedside safety swallow eval. ST ordered. NIH scored at 19 (?), but very difficulty to obtain accurate score as patient is unable to follow directions. Patient moves all her extremities spontaneously, is alert with her eyes open but unable to follow directions. When you lift her arms up she lays it back down on the bed, but she also moves her arms spontaneously to try to grab the bedside rails or attempt to remove wires. Dr. Willoughby notified of possible higher NIH score, which he agrees is a difficult measurement at this time and mental status does not appear to have changed since admission to ER. Bed alarm active, high fall precautions in place for safety. 1800 Patient's cheeks became flushed and warm, elevated temperate of 102 noted. Able to collect urine and send for sample. Dr. Willoughby notified of fever. Blood cultures, CXR, tylenol suppository ordered.
[2021-05-02] MEDS: AMPICILLIN 2,000 MG in SODIUM CHLORIDE 0.9% 100 ML 200 ML IV (20:01)
[2021-05-02 21:00] LABS: Reflexed Lactate in 2 Hours Y
[2021-05-02] MEDS: cefTRIAXone 2,000 MG in SODIUM CHLORIDE 0.9% 100 ML 200 ML IV (21:16)
[2021-05-02 21:48] LABS: Lactate 2HR (Lactic Acid Rflx) 1.7 mmol/L (0.7-2.1)
[2021-05-02] MEDS: LORazepam 2 MG/ML INJ 1 MG IV (22:25)
[2021-05-02] MEDS: WATER IV (22:42)
[2021-05-02] MEDS: DEXTROSE 5% IV (22:42)
[2021-05-02] MEDS: ACYCLOVIR IV (22:42)
[2021-05-03] VITALS (12 sets, daily range): BP systolic 119–131; BP diastolic 61–85; PULSE 86–105; RESP 16–21; TEMP 36.4–38.1; O2SAT 93–99
[2021-05-03] MEDS: VANCOMYCIN 1,250 MG/250 ML PIGGYBACK 250 MG IV (00:24)
[2021-05-03] MEDS: DEXAMETHASONE 10 MG/ML VIAL 8 MG IV ×4 (00:34→18:35)
[2021-05-03] MEDS: HALOPERIDOL 5 MG/ML VIAL 2 MG IV ×2 (00:34→06:51)
[2021-05-03] MEDS: AMPICILLIN 2,000 MG in SODIUM CHLORIDE 0.9% 100 ML 200 ML IV ×4 (02:21→18:35)
[2021-05-03] MEDS: ACETAMINOPHEN 650 MG SUPP PR (02:21)
[2021-05-03] MEDS: LORazepam 2 MG/ML INJ 0.5 MG IV (04:26)
[2021-05-03 05:26] LABS: Add Manual Diff / Slide Review NO; Basophils Absolute Auto 0 /uL (0-100); Basophils Percent Auto 0.2 % (0-2); Eosinophils Absolute Auto 0 /uL (0-450); Hematocrit 48.3 % (36-46); Hemoglobin 16.2 g/dL (12.0-16.0); Lymphocytes Absolute Auto 900 /uL (1100-4500); Lymphocytes Percent Auto 10.7 % (25-40); Mean Corpuscular HGB Conc 33.6 % (30-36); Mean Corpuscular Hemoglobin 33.2 PG (26-34); Monocytes Absolute Auto 100 /uL (0-900); Monocytes Percent Auto 1.3 % (3-14); Neutrophils Absolute Auto 7800 /uL (1500-7000); Neutrophils Percent Auto 87.8 % (50-75); Platelet Count 234 X10^3/uL (150-400); Red Blood Cell Count 4.88 X10^6/uL (4.0-5.2); Red Cell Distribution Width 13.4 % (11.6-14.8); White Blood Cell Count 8.9 X10^3/uL (4.5-11.0)
[2021-05-03 05:32] LABS: BUN Creatinine Ratio 17.1 (6-22); Blood Urea Nitrogen 12 mg/dL (7-17); Calcium 8.8 mg/dL (8.4-10.2); Carbon Dioxide 20 mmol/L (22-32); Chloride 107 mmol/L (98-107); Estimated Glomerular Filt Rate > 60.0 mL/min (>60); Glucose 173 mg/dL (80-110); HEMOLYSIS < 15 (0-50); Magnesium 1.9 mg/dL (1.6-2.3); Phosphorous 3.7 mg/dL (2.8-4.1); Potassium 3.6 mmol/L (3.4-5.1); Sodium 138 mmol/L (137-145)
[2021-05-03] MEDS: cefTRIAXone 2,000 MG in SODIUM CHLORIDE 0.9% 100 ML 200 ML IV ×2 (08:19→20:15)
[2021-05-03] MEDS: ACYCLOVIR IV ×2 (09:13→22:01)
[2021-05-03] MEDS: DEXTROSE 5% IV ×2 (09:13→22:01)
[2021-05-03] MEDS: WATER IV ×2 (09:13→22:01)
--- NOTE | 2021-05-03 09:33 | PC.NURSE ---
Confusion, with consistent restlessness this morning continues. Patient is able to sleep for short intervals at a time, then wakes and moves her arms and legs in bed pulling at blankets, lines, gown without opening her eyes. Does respond to noise and her name with spontaneous eye opening but does not engage, follow directions or maintain eye contact. Daughter at bedside. 1:[address] for fall precautions and safety at this time. Waiting for Dr. Bolanos this morning for updated plan of care. Concern over how MRI or LP puncture would be performed with patients' persistent restlessness and inability to follow directions. Continue to monitor.
--- NOTE | 2021-05-03 10:27 | OT.IPNOTE ---
Per Hospitalist hold all therapy today as pt not appropriate. To check tomorrow if pt is appropriate for OT eval.
--- NOTE | 2021-05-03 11:16 | SLP.IPNOTE ---
Per hospitalist, pt is not appropriate for assessment today. Will check status tomorrow
[2021-05-03] MEDS: SODIUM CHLORIDE 0.9% 1,000 ML 100 ML IV (12:20)
--- NOTE | 2021-05-03 12:29 | CM.DANOTE ---
Addendum entered by Darrell Bowden 05/03/21 15:04: Edenilson at [facility] indicated that patient would need to be evaluated by Ranjana to see if pt is at baseline to return to their facility; he anticipated pt would need rehab at [facility] or otherwise first. Original Note: Discharge Assessment Note: Patient is 75yo Female admitted for acute encephalopathy assigned to hospitalist team. Patient has history of CVA, hypertension, osteoporosis, hyperlipidemia, and is anticoagulated. Patient is pending LP for meningitis r/o. PT/OT therapies on hold as of 05/03. Patient is confused, not following commands, speech mostly garbled. Patient was residing at [facility] with anticipated discharge of 05/07. Patient's daughter reported patient was discharging to live with a friend of pt's in [place]. Daugther reported patient used walker for ambulation due to some weakness in legs but was otherwise independent completing ADLs. Daughter reported patient had resided at [facility] since last fall. Patient has not been driving for approx 1.5 years. Daughter is DPOA. INS: [facility] Medicaid PCP: Pippa Rivas Plan: patient may discharge to [facility] if discharge occurs prior to and functioning is back to baseline. Care management will continue to follow throughout clinical course of admission for discharge planning needs. Darrell JUNIORSW Discharge Planning/Care Management CM Discharge Assessment Start: 05/03/21 12:24 Freq: Status: Active Protocol: Document 05/03/21 12:24 DARIN (Rec: 05/03/21 12:29 DARIN [id number]) Discharge Planning Assessment Assigned [facility] Darrell Bowden [facility] DPOA/Assigned Designee Name rochelle Lewis Contact Information [phone] Advance Directives? No: POLST no intubation/yes CPR History Provided By Family Member,Medical Record Has Patient been admitted in last 30 No days? Prior Living Arrangements Assisted Living Comment [facility] w/plan to discharge Household Members none Type of transporation used prior to Relies on Others admit Facility Name Admitted From: [facility] Willing to Return to Facility? Yes Independent with ADL's Yes: at baseline, not currently Is patient alert and oriented? No: intermittent confusion Caregiver for Another No DME Already Rented / Owned FWW / Walker Patient/Family Preference [facility] Facility,[facility] Barriers to Discharge No Discharge Plan Assisted Living Facility Transportation Arrangement rochelle Lewis Referrals Initiated [facility] If patient plan is home with home health No : Has signed face to face form been completed? If patient plan is SNF: Has PASSR been No completed? Whiteboard Updated in Patient Room with No name and ext. # of Willower Comment assmt completed via telephone w/daughter as patient is confused Review Status In Process Next Review Type Continued Stay Review
--- NOTE | 2021-05-03 12:34 | PT-IP ANOTE ---
per rounds: pt is not appropriate for PT eval for today. Talked with nurse and stated that pt continues to have confusion and unable follow anything and doctor want to maybe request a lumbar puncture to r/o meningitis. will f/u tomorrow.
--- NOTE | 2021-05-03 14:59 | PM.PN.1 ---
Subjective Subjective Date Patient Seen: 05/03/21 Time Patient Seen: 14:59 Interval history: 75 F admitted and being treated with possible meningitis. LP with IR unable to be performed today, delayed until tomorrow. Mental status is markedly improved this afternoon. She is now alert and oriented x2, denies back or neck pain, no nausea, vomiting, chest pain, or shortness of breath. Remains confused. Exam Vital Signs (past 8 hours): - 05/03/21 07:42 05/03/21 08:06 05/03/21 13:04 Temperature 98.9 F 99.2 F Pulse Rate 98 H 91 H Respiratory Rate 20 21 Blood Pressure 121/85 119/61 Pulse Oximetry 96 96 Oxygen Delivery Method Room Air Oxygen Flow Rate 0 Narrative Exam Narrative: GEN: patient lying in bed, hyperactive, confused, repetitive hand movements, can't sit still HEENT: moist mucous membranes, PERRL NECK: trachea midline, no JVD CV: regular rate and rhythm, no murmurs PULM: clear bilaterally ABD: soft, nontender, nondistended, no organomegaly, normal bowel sounds EXT: warm and well perfused with no edema NEURO: alert and oriented x2 in the afternoon, much improved. follows commands, moves all extremities. Much improved from the morning. SKIN: no rashes noted Objective Labs Result Diagrams: 05/03/21 04:45 05/03/21 04:45 Labs: Laboratory Results - last 24 hr 05/02/21 05/02/21 05/02/21 16:53 16:53 16:53 WBC RBC Hgb Hct MCV MCH MCHC RDW Plt Count Neut % (Auto) Lymph % (Auto) [place] % (Auto) Eos % (Auto) Baso % (Auto) Neut # (Auto) Lymph # (Auto) [place] # (Auto) Eos # (Auto) Baso # (Auto) Sodium Potassium Chloride Carbon Dioxide BUN Creatinine Estimated GFR BUN/Creatinine Ratio Glucose Lactate Calcium Phosphorus Magnesium Ammonia < 9 L TSH 0.587 Urine Color Urine Appearance Urine pH Ur Specific [place] Urine Protein Urine Glucose (UA) Urine Ketones Urine Occult Blood Urine Nitrate Urine Bilirubin Urine Urobilinogen Ur Leukocyte Esterase Urine RBC Urine WBC Urine Bacteria Ur Culture Indicated? Salicylates < 1.0 U Opiates 300ng/mL cut Ur Oxycodone Screen Urine Methadone Screen Acetaminophen < 10 L Ur Barbiturates Screen U Tricyclic Antidepress Ur Phencyclidine Scrn Ur Amphetamines Screen U Methamphetamines Scrn Ur MDMA Scrn (Ecstasy) U Benzodiazepines Scrn Urine Cocaine Screen U Marijuana (THC) Screen 05/02/21 05/02/21 05/02/21 17:45 17:45 18:55 WBC RBC Hgb Hct MCV MCH MCHC RDW Plt Count Neut % (Auto) Lymph % (Auto) [place] % (Auto) Eos % (Auto) Baso % (Auto) Neut # (Auto) Lymph # (Auto) [place] # (Auto) Eos # (Auto) Baso # (Auto) Sodium Potassium Chloride Carbon Dioxide BUN Creatinine Estimated GFR BUN/Creatinine Ratio Glucose Lactate 2.6 H Calcium Phosphorus Magnesium Ammonia TSH Urine Color Yellow Urine Appearance Clear Urine pH 8.5 H Ur Specific [place] 1.015 Urine Protein Negative Urine Glucose (UA) Negative Urine Ketones Trace H Urine Occult Blood Trace-intact Urine Nitrate Negative Urine Bilirubin Negative Urine Urobilinogen 0.2 Ur Leukocyte Esterase Negative Urine RBC None seen Urine WBC None seen Urine Bacteria None seen Ur Culture Indicated? Cult not indicated Salicylates U Opiates 300ng/mL cut Negative Ur Oxycodone Screen Negative Urine Methadone Screen Negative Acetaminophen Ur Barbiturates Screen Negative U Tricyclic Antidepress Negative Ur Phencyclidine Scrn Negative Ur Amphetamines Screen Negative U Methamphetamines Scrn Negative Ur MDMA Scrn (Ecstasy) Negative U Benzodiazepines Scrn Negative Urine Cocaine Screen Negative U Marijuana (THC) Screen Negative 05/02/21 05/03/21 05/03/21 21:29 04:45 04:45 WBC 8.9 RBC 4.88 Hgb 16.2 H Hct 48.3 H MCV 99.0 MCH 33.2 MCHC 33.6 RDW 13.4 Plt Count 234 Neut % (Auto) 87.8 H D Lymph % (Auto) 10.7 L [place] % (Auto) 1.3 L Eos % (Auto) 0.0 L Baso % (Auto) 0.2 Neut # (Auto) 7800 H Lymph # (Auto) 900 L [place] # (Auto) 100 Eos # (Auto) 0 Baso # (Auto) 0 Sodium 138 Potassium 3.6 Chloride 107 Carbon Dioxide 20 L BUN 12 Creatinine 0.70 Estimated GFR > 60.0 BUN/Creatinine Ratio 17.1 Glucose 173 H Lactate 1.7 Calcium 8.8 Phosphorus 3.7 Magnesium 1.9 Ammonia TSH Urine Color Urine Appearance Urine pH Ur Specific [place] Urine Protein Urine Glucose (UA) Urine Ketones Urine Occult Blood Urine Nitrate Urine Bilirubin Urine Urobilinogen Ur Leukocyte Esterase Urine RBC Urine WBC Urine Bacteria Ur Culture Indicated? Salicylates U Opiates 300ng/mL cut Ur Oxycodone Screen Urine Methadone Screen Acetaminophen Ur Barbiturates Screen U Tricyclic Antidepress Ur Phencyclidine Scrn Ur Amphetamines Screen U Methamphetamines Scrn Ur MDMA Scrn (Ecstasy) U Benzodiazepines Scrn Urine Cocaine Screen U Marijuana (THC) Screen PFSH Social History household members: none Smoking Status: Never smoker alcohol intake: never Assessment & Plan Assessment & Plan narrative: Ms. Reynolds presented to the hospital with acute neurologic change 1. Acute encephalopathy -etiology not clear, possible meningitis given fever. UDS clear. -shortly after admit developed fever, UA negative and no other evidence of active infection. -CT head shows no acute bleed -no evidence of acute stroke on CT head, no large vessel occlusion on CT angio head/neck. -CT head did show read of ex vacuo dilation of right lateral ventricle. -LP with radiology pending. If LP is negative, proceed with MRI to r/o CVA. For now continue antibiotics, antiviral, and steroids for possible infectious meningitis. -swallow eval initially on hold this AM given encephalopathy, now improving re-assess to insure safety for diet today. 2. History of CVA -ordered for aspirin, statin -NIH qshift -PT/OT ordered 3. Hypertension -hold anti-hypertensives for now and restart if patient safe to swallow 4. Hyperlipidemia -continue statin 5. Osteoporosis -hold alendronate 6. Anticoagulated -reason unclear -attempting to get more records -not in afib on initial EKG CODE: Per POLST ok for CPR, no to intubation Proxy: per notes Debbie Loza, daughter I have utilized all available resources to reconcile patient's home medications. Time Spent With Patient Critical Care time: I spent a total of [] minutes of critical care time on this patient's care today; this time is exclusive of procedural time.
--- NOTE | 2021-05-03 15:13 | PC.NURSE ---
Addendum entered by Michael Veliz R.N. 05/03/21 15:30: Speech therapy at bedside for eval at this time. Original Note: Patient seems gradually more alert this afternoon, currently responding to her name and opening her eyes to sounds. Able to state her name, and was able to follow a couple commands at this time. Does not remember coming in to the hospital. Daughter has remained at bedside today. Continue to monitor. Alerted to new schedule for LP tomorrow (05/04) at 1330. Dr. Luis Miguel crockett.
--- NOTE | 2021-05-03 16:18 | ST.IPIE ---
Visit Care Team Role Provider Type PREMA Maynard Primary Care Provider Non-Staff Specialty: Medical Address: [address] [place] [address], [id number] Email: Ld Farrell DO Emergency Provider Physician Referring Provider Specialty: Emergency Medicine Address: [address] [place] [address], [id number] Email: [email or web address] Chad Willoughby MD Admit Provider Physician Attending Provider Specialty: Hospitalist Address: [address] [place] [address], [phone] Fax: Email: [email or web address] Current Diagnoses Encephalopathy, unspecified (05/02/21) ST IP Initial Evaluation Report PRODUCT MARKETING SPECIALIST Clinical Swallow Evaluation Start: 05/03/21 15:53 Freq: Status: Active Protocol: Document 05/03/21 15:53 ISREAL (Rec: 05/03/21 16:18 ISREAL [email or web address]) Clinical Swallow Evaluation Session Time Visit Start Time 15:20 Visit Stop Time 15:40 Total Visit Minutes [address] Jose M Bolanos Reason for Referral Acute Encephalopathy, possible Meningitis Setting Assessment Location Acute Care Visit Type Note Type Initial evaluation Next Note Type Next Note Type Treatment Note Patient Information Identification Type Name,ID Card History Per H&P: Ms. Reynolds is a 75W who presented to the hospital with acute neurologic change. She had been at a facility. She was doing well and plan was to possibly discharge her home within a day. She was seen normal at noon, and then within an hour she was noted to be acute altered. She was unable to follow commands. She was speaking incoherently. She was brought in to the hospital. She was a code stroke. CT head showed large right ventricle secondary to ex vacuo dilation per ED report. There was evidence of old stroke, no evidence of acute ischemia. CT angio head/ neck showed no acute large vessel disease. Labs notable for WBC 7.7, hgb 15.6, creatinine 0.84. She was ordered for aspirin and admitted for further treatment . She was made NPO pending swallow evaluation. Subjective Observations Pt was sitting up in bed with dtr at bedside. She was awake, alert, fidgeting and trying to get out of bed, confused. She was minimally conversant with yes/no and single words and short phrases such as Really? and You're kidding. They were mostly appropriate with inconsistent reliability of yes/no. For example, when offered juice, the pt said, Yes, yes, yes, yes while pushing the cup away. The pt stated that she had eaten earlier in the day, though she had not. She accepted oral trials for swallow evaluation. Per dtr, the pt has normal swallowing at baseline. Reported by Patient Current Diet Nothing by mouth Baseline Feeding Method Independent in self-feeding Objective Assessment Mental Status Responsive,Cooperative, Confused,Impulsive Oral Integrity WFL Dentition Missing teeth Lip Function Within normal limits Observation of Lips at Rest Symmetrical Pucker Within normal limits Lip Retraction Right sided weakness/Drooping Alternating Pucker/Lip Retraction Within normal limits Tongue Function Within normal limits Observations of Tongue at Rest Within normal limits Tongue Protrusion Within normal limits Tongue Lateralization Within normal limits Jaw Function Within normal limits Observations of Jaw at Rest Within normal limits Jaw Opening Within normal limits Jaw Closing Within normal limits Jaw Lateralization Within normal limits Hard/Soft Palate Function Within normal limits Observations of Hard/Soft Palate Within normal limits Nasality Within normal limits Phonation Within normal limits Respiratory Sufficiency Within normal limits Comment Minimally reduced right side facial tone observed compared to left. Pt is missing some upper and lower molars bilaterally; otherwise dentition is natural and in adequate condition. Pt followed most simple oral directions with occ need for demonstration. Food and Liquid Trials Position During Assessment Upright (90 degrees),Slightly reclined,In bed Liquids Trialed Ice chips,Thin Solids Trialed Puree,Mechanical Soft,Regular Administration Type Cup single sip,Cup consecutive sips,Straw,Self-feeding, Dependent feeding Oral Impairment Within functional limits Oral Phase Comments Minimal collection of dry cracker and diced fruit residue post swallow was observed at left side, which cleared sufficiently with prompts for liquid wash. Swallow trigger was timely with good hyolaryngeal elevation and anterior propulsion. Pt was able to self-feed. She was mildly impulsive, taking large bites prior to fully swallowing the previous bite. Recommend supervision as needed to prevent rapid intake . Recommended oral care after meals as well. Pharyngeal Impairment Within functional limits Pharyngeal Phase Comments No overt s/sx of aspiration were noted when pt was sitting upright at 90 degrees. When reclined slightly following trials, she produced small coughs before and after a sip of thin liquid. PRODUCT MARKETING SPECIALIST instructed the pt and her dtr that the pt is to be sitting fully upright for all oral intake. Will continue to monitor for safety. Findings Swallowing Function Within functional limits Contributing Factors to Swallow Reduced alertness or attention Impairment ,Difficulty following directions Prognosis Good Based on Family support,Duration of symptoms/severity Comment PRODUCT MARKETING SPECIALIST to administer assessment of expressive, receptive and cognitive communication tmw Comments May be at mild risk of aspiration if food/liquid consumed when reclined. Recommendations Instrumental Assessment No Swallowing Treatment Yes Frequency Daily Duration over hospital course Recommended Solids Mechanical Soft Recommended Liquids Thin Safety Precautions/Swallowing 1 to 1 distant supervision, Recommendations Feed only when alert,Reduce distractions,Remain upright ( 90 degrees) during all oral intake,Needs verbal cues to use recommended strategies, Upright position at least 30 minutes after meals,Small bites and sips when eating, Slow rate; swallow between bites,Strict oral care after intake,Check for pocketing Medication Recommendations As Tolerated Comments Pt will likely benefit from SNF, pending speech, lang & cog evaluations Education Patient/Caregiver Education Described results of evaluation,Patient expressed understanding of evaluation, Patient expressed agreement with goals & treatment plans, Family/caregivers expressed understanding of evaluation, Family/caregivers expressed agreement with goals & treatment plans,Family/ caregivers expressed understanding of safety precautions,Family/caregivers expressed understanding of feeding recommendations, Patient requires further education/training,Family/ caregivers require further education/training Goals Short-term Goals 1. The pt will follow safe swallow precautions with prompting as needed. 2. The pt will participate in evaluation of expressive, receptive and cognitive communication skills to guide POC. Long-term Goals 1. The pt will tolerate least restrictive diet to meet her nutrition and hydration needs.
[2021-05-03] MEDS: ASPIRIN EC 81 MG TABLET PO (17:24)
[2021-05-03] MEDS: ATORVASTATIN 20 MG TABLET 80 MG PO (22:00)
[2021-05-04] VITALS (17 sets, daily range): BP systolic 112–159; BP diastolic 61–85; PULSE 75–103; RESP 14–20; TEMP 36.3–37.5; O2SAT 94–98
[2021-05-04] MEDS: VANCOMYCIN 1,250 MG/250 ML PIGGYBACK 250 MG IV (00:11)
[2021-05-04] MEDS: AMPICILLIN 2,000 MG in SODIUM CHLORIDE 0.9% 100 ML 200 ML IV ×2 (01:45→11:42)
[2021-05-04] MEDS: DEXAMETHASONE 10 MG/ML VIAL 8 MG IV ×2 (01:45→10:19)
[2021-05-04] MEDS: ENOXAPARIN 40 MG/0.4 ML SYRINGE SUBCUT (08:22)
[2021-05-04] MEDS: ASPIRIN EC 81 MG TABLET PO (08:23)
--- NOTE | 2021-05-04 09:20 | PT.IIE ---
Addendum entered and electronically signed by Mahsa Zamarripa PT 05/04/21 13:56: territory manager stated that she talked to pt's daughter and stated that pt has been living at [facility] and has been modified independent using fWW for ambulation. prior to current hospitalization, pt was planning to d/c to her friends house since she is not needing much assistance that warrants to be on a SNF. Original Note: Current Diagnoses Encephalopathy, unspecified (05/02/21) Physical Therapy Inpatient Evaluation/Re-Eval M1 PT/OT-IP Prior Functional Status Start: 05/04/21 12:07 Freq: NEEDED Status: Active Protocol: Document 05/04/21 09:20 AB (Rec: 05/04/21 12:23 AB [email or web address]) Medical Review Prior Functional Status Medical History Reviewed Yes Communication able to make needs known but with confusion Mobility and Gait pt stated that she is independent with all mobilities and ambulation without AD Social History Household Members children Living Arrangements Mobile home Number of Floors (Floors) One Floor Number of Stairs To Enter/Railing? no steps to enter Home Environment Standard Height Toilet,Tub/ Shower Additional Social History Comment pt stated that she lives with her daughter M2 PT-IP Current Condition Start: 05/04/21 12:07 Freq: NEEDED Status: Active Protocol: Document 05/04/21 09:20 AB (Rec: 05/04/21 12:23 AB [email or web address]) Physical Therapy Current Condition Current Condition Evaluation Date 05/04/21 Treatment Diagnosis altered mental status; difficulty in walking Onset Date 05/02/21 M3 PT-IP Subjective Start: 05/04/21 12:07 Freq: NEEDED Status: Active Protocol: Document 05/04/21 09:20 AB (Rec: 05/04/21 12:23 AB [email or web address]) Subjective Physical Therapy Visit Type Type Initial Evaluation Visit Start Time 09:20 Visit Stop Time 09:41 Total Visit Minutes 21 Notes Pt on hold yesterday per doctor due to cognitive issues . talked with Dr. Bolanos today and cleared pt for PT. stated that pt is much alert today. Number of IRON HANDLER Visits 0 Therapy Pain Assessment Pain Present Pain Present Denied Pain M4 PT-IP Mobility and Gait Start: 05/04/21 12:07 Freq: NEEDED Status: Active Protocol: Document 05/04/21 09:20 AB (Rec: 05/04/21 12:23 AB [email or web address]) PT-Transfer Assessment Sit to and From Stand Sit to and from Stand Moderate Assistance,1 Person Assistance,Use of Upper Extremities Equipment Transfer Assistive Device Gait Belt,Front Wheeled Walker Orthotic/Prosthetic Devices or Brace: No Transfers Transfer Destination Bed,Chair Transfer Technique Stand Step Pivot Transfer Ability Level of Assist Moderate Assistance,1 Person Assistance,Use of Upper Extremities Comments Mobility Comments pt sitting on bedside commode and NAC in room. Pt completed sit to stand from the commode mod A and cues. increase posterior trunk lean and needing mod A for stability. pt with confusion and can be resistive. pt completed step transfer to EOB mod A and cues . Pt requires education and redirection with all tasks. pt does not know where and why she is in the hospital. pt agreed to ambulate and completed ~ 25 ft in room using FWW min to mod A. presents with shuffling gait. max cues with all tasks and pt has decrease safety awareness. pt agreed to sit up on chair. positioned on chair. call light and table placed within reach. chair alarm on. Gait Assessment Gait Gait Assistance Required: Minimum Assistance,Moderate Assistance Distance (Feet) 25 Able to Maintain Weight Bearing Status Yes During Gait Assistive Devices Assistive Device Gait Belt,Front Wheeled Walker Orthotic/Prosthetic Devices or Brace: No Gait Deviations General Gait Pattern Decreased Stride Length, Decreased Feet Clearance,Step- to Gait Factors Limiting Gait Function Factors Limiting Gait Function Decreased Activity Tolerance, Decreased Strength,Difficulty Following Directions,Poor Balance,Poor Safety Awareness PT-Balance Assessment Sitting Balance and Reactions Static Sitting Balance Ability Good Dynamic Sitting Balance Ability Fair Standing Balance and Reactions Static Standing Balance Ability Poor Dynamic Standing Balance Ability Poor Device Used FWW M5 PT-IP Objective Assessments Start: 05/04/21 12:07 Freq: NEEDED Status: Active Protocol: Document 05/04/21 09:20 AB (Rec: 05/04/21 12:23 AB [email or web address]) Orientation Orientation/Cognition Level of Alertness Confusional State Orientation Name Safety Awareness Decreased Safety Awareness Memory Description Short Term Impaired,Shelter Impaired Gross Range of Motion Lower Extremity ROM Assessment Within Functional Limits Strength Lower Extremity Strength Hip 4-/5 Knee 4-/5 Muscle Tone Muscle Tone WNL Yes M6 PT-IP Treatment Start: 05/04/21 12:07 Freq: NEEDED Status: Active Protocol: Document 05/04/21 09:20 AB (Rec: 05/04/21 12:23 AB [email or web address]) Physical Therapy Treatment Education Education Provided Safety M7 PT-IP Assessment and Plan Start: 05/04/21 12:07 Freq: NEEDED Status: Active Protocol: Document 05/04/21 09:20 AB (Rec: 05/04/21 12:23 AB [email or web address]) PT Summary Assessment and Plan Potential Rehabilitation Potential Fair Status of Condition at Evaluation Evolving Summary Impairments Pain,ROM,Strength,Balance, Coordination,Sensation,Tone, Cognition,Bed Mobility, Transfers,Gait,Activity Tolerance Assessment Summary pt requiring mod A with mobility using FWW. Pt has confusion and decrease safety awareness affecting mobility independence. Pt can be resistive to care and requires education and redirections with all tasks. pt will require SNF rehab to improve strength and mobility. Goals Bed Mobility Goal Independent Transfer Goal Independent,Front Wheeled Walker Gait Goal Independent,Front Wheel Walker Gait Distance 200 Days to Meet Goals 10 Frequency of Treatment Frequency Of Treatment Once a Day Treatment Plan Physical Therapy Treatment Plan Bed Mobility Training,Transfer Training,Gait Training, Therapeutic Exercise,Balance Retraining,Discharge Planning, Hot or Cold Pack,Neuromuscular Re-ed,Coordination Retraining Precautions Other Precautions falls Recommendations To Nursing Amount of Assist Needed 1 Person Assist Discharge Recommendations PT Discharge Recommendations SNF Rehab Transportation Needs at Discharge Private Vehicle,Wheelchair/ Cabulance
[2021-05-04] MEDS: cefTRIAXone 2,000 MG in SODIUM CHLORIDE 0.9% 100 ML 200 ML IV (10:18)
--- NOTE | 2021-05-04 10:52 | PC.NURSE ---
Addendum entered by Mackenzie Dumont R.N. 05/05/21 08:24: Late Entry: Patient had multiple runs of vtach, and pvcs after 8beat run throughout the day, ICU called this RN multiple times regarding the issue. did not give any new orders at the time of notification. Addendum entered by Mackenzie Dumont R.N. 05/05/21 08:19: Late Entry: Patient had a 9 beat run of vtach, and pvcs, notified in the morning. Patient had another run of vtach about 8 beats, Dr. crockett. Passed on to shift supervisor melting, Ana. Addendum entered by Mackenzie Dumont R.N. 05/04/21 16:58: Patient still resting after ativan given, she is breathing well and respirations are wnl. Addendum entered by Mackenzie Dumont R.N. 05/04/21 15:05: Patient back from Lumbar Puncture, she has layed on her back for one hour flat. Yoon catheter placed, coudee 14f. She tolerated this well and has had a total of 400cc of clear urine out of her bladder. VSS. Resting comfortably. Original Note: Assess- Patient has a new midline to her l.upper arm. She denies pain. IV antibiotics infusing and decadron given iv. Patient is alert and oriented x1. She is familiar with faces and her daughter but she does not know the date or where she is at. Up with 2 person assist to the chair. She had a bowel movement but did not void yet. Patient was bladder scanned around 0345, and ended up having and in out cath. We will bladder scan her again at around 1145 and if she needs a catheter we will keep this in.
--- NOTE | 2021-05-04 11:25 | ST.IPSLE ---
Visit Care Team Role Provider Type PREMA Maynard Primary Care Provider Non-Staff Specialty: Medical Address: [address] [place] [address], [id number] Email: Ld Farrell DO Emergency Provider Physician Referring Provider Specialty: Emergency Medicine Address: [address] [place] [address], [address] Email: [email or web address] Chad Willoughby MD Admit Provider Physician Attending Provider Specialty: Hospitalist Address: [address] [place] [address], [address] Fax: Email: [email or web address] Current Diagnoses Encephalopathy, unspecified (05/02/21) Speech-Language Pathology Speech/Language Eval SITE INTERPRETER Adult Cognitive Linguistic Eval Start: 05/04/21 10:20 Freq: Status: Active Protocol: Document 05/04/21 10:20 TROY (Rec: 05/04/21 10:30 ZS [id number]) Adult Cognitive Linguistic Evaluation Session Time Visit Start Time 09:50 Visit Stop Time 10:10 Total Visit Minutes 20 Setting Assessment Location Acute Care Visit Type Note Type Re-evaluation Next Note Type Next Note Type Treatment Note Patient Information Identification Type Name,Wristband Medical History Per H&P: Ms. Reynolds is a 75W who presented to the hospital with acute neurologic change. She had been at a facility. She was doing well and plan was to possibly discharge her home within a day. She was seen normal at noon, and then within an hour she was noted to be acute altered. She was unable to follow commands. She was speaking incoherently. She was brought in to the hospital. She was a code stroke. CT head showed large right ventricle secondary to ex vacuo dilation per ED report. There was evidence of old stroke, no evidence of acute ischemia. CT angio head/ neck showed no acute large vessel disease. Labs notable for WBC 7.7, hgb 15.6, creatinine 0.84. She was ordered for aspirin and admitted for further treatment . She was made NPO pending swallow evaluation. Language(s) Spoken in the [employer] [place] Subjective Patient Report Johanne reported some confusion. Per NSG, pt is communicating better today though still demonstrates significant confusion. NSG reported Johanne will start talking about one thing and change topics mid-conversation . Observed Johanne placing her lunch order. No word finding difficulties observed and she answered questions appropriately. Mental Status Alert,Responsive,Cooperative Assessment Oral Motor Examination Completed No Formal Assessment Standardized Test/Screener Type [facility] Mental Status ([facility]) Administration Complete Results Results of the [facility] place Johanne's score at 2/30, indicating significant cognitive impairment. Johanne indicated when she did not know the answer to questions rather than answering them and recognized when she was not doing well on the assessment. She recalled 3/5 objects immediately and 0/5 when asked about them later. Her clock drawing took about 3 minutes to complete and she perseverated numbers and scratched out numbers without re-writing them. Perseveration observed with generative naming task as well, as Johanne repeated zebra three times. Following the assessment, Johanne began talking about where she was going after she got out of the hospital and demonstrated 3 non-linear topic changes within the conversation. Findings/Results Cognitive Function Severely impaired Findings Results of the [facility] place Johanne's score at 2/30, indicating significant cognitive impairment. Recommend continued monitoring of cognitive and linguistic skills as Johanne showed marked improvement in language and cognition since yesterday . Prognosis Prognosis Good Based on Cognitive status,Family support,Duration of symptoms/ severity,Time since onset Plan of Care Speech-Language Treatment Yes Frequency daily during hospital stay Patient/Caregiver Education Described results of evaluation,Patient expressed understanding of evaluation Short Term Goals 1. The pt will follow safe swallow precautions with prompting as needed. 2. The pt will participate in ongoing evaluation/monitoring of expressive, receptive and cognitive communication skills . Electric Meter Inspector Goals 1. The pt will tolerate least restrictive diet to meet her nutrition and hydration needs.
--- NOTE | 2021-05-04 12:20 | DIET.CONS ---
Dietary Consultation Note Admission Date: 05/02/2021 14:44 Assessment: 75y F admitted for altered mental status awaiting LP to rule out meningitis. Pt cleared by speech therapy for IDDSI7/Easy Chew diet secondary to slight R face droop and missing several upper and lower molars. Pt scored 2/30 on SLUMS. Pts POs 15-25% first two meals this hospitalization likely related to altered mental status. Speech recommends distant supervision with cues for impulse control and safe swallowing. Pt referred to nutrition for low MNA score (11) however, this due to pt confusion and not being able to answer questions with insight. Ht: 152.4 cm Wt: 56.9 kg BMI: 24.5 UBW: Last BM: 05/03/21 (05/04/21 09:34) MNA: 11 Quan Score: 15 Diet: 05/04/21 Breakfast Easy to Chew/IDDSI7 Diet Diet Modifications: Nutrition Percent Meal Consumed 15% 05/04/21 08:17 Percent Meal Consumed 25% 05/03/21 18:44 Labs: RBC 4.88 X10^6/uL (4.0-5.2) 05/03/21 04:45 Hgb 16.2 g/dL (12.0-16.0) H 05/03/21 04:45 Hct 48.3 % (36-46) H 05/03/21 04:45 Creatinine 0.70 mg/dL (0.52-1.04) 05/03/21 04:45 Lactate 1.7 mmol/L (0.7-2.1) 05/02/21 21:29 Nutrition Diagnosis: inadequate oral intake r/t acute mental status change Interventions: 1. Recc ONS Ensure Original with meal trays to encourage adquate hydration and macro- micronutrient intake until POs ~75%. Monitoring/Evaluations: POs, discontinuation of ONS Electronically Signed by: Katie Finch 05/04/21 12:20 Clinical [address] [address]
[2021-05-04] MEDS: ACYCLOVIR IV (12:32)
[2021-05-04] MEDS: WATER IV (12:32)
[2021-05-04] MEDS: DEXTROSE 5% IV (12:32)
[2021-05-04] MEDS: SODIUM CHLORIDE 0.9% FLUSH 10 ML IV ×2 (12:32→21:32)
[2021-05-04] MEDS: LORazepam 2 MG/ML INJ IV (13:08)
--- NOTE | 2021-05-04 13:30 | DI.RAD.S_ITS ---
PROCEDURE: FL GUIDED LUMBAR PUNCTURE LP INDICATIONS: FEVER COMPARISON: None. TECHNIQUE: The indications, alternatives, benefits, risks, and complications were explained to the patient. Written informed consent was obtained and placed in the chart. The patient was placed in a prone position on the fluoroscopy table, and a level was chosen for percutaneous access under fluoroscopic guidance. The site was prepped and draped in a sterile fashion. After local anaesthetic, a spinal needle was then used to enter the intrathecal space, with return of cerebrospinal fluid. After obtaining sufficient fluid, the needle was then withdrawn, and a bandage applied to the puncture site. FINDINGS: Puncture level: L2-3 Needle: Spinal needle. Opening pressure: 14 mm Hg CSF volume and description: Clear Medications: 1% lidocaine for anaesthesia. Complications: None Laboratories: As ordered by referring clinician. IMPRESSION: Successful fluoroscopically guided lumbar puncture. Dictated by: Jefferson Madison M.D. on 05/04/2021 at 15:48 Approved by: Jefferson Madison M.D. on 05/04/2021 at 15:48
--- NOTE | 2021-05-04 13:31 | CM.DPC ---
DCP SNF vs return [facility] with HH Per MD, pt seems to be a little less confused today but still currently a poor historian and LP test yesterday had to be rescheduled for 1330 off the floor today to r/o meningitis. Per PT, pt was able to participate in therapy and walked 25 ft with FWW min to mod assist and required cueing and recommending SNF before home with Dtr. SW updated PT that pt's statement that she lives independently without walker with Dtr was not accurate. After discussion with PT and updating that pt currently lives at [facility] fairly independent with FWW then PT feels that pt potentially could return to [facility] with increased assist and HH vs SNF pending progress. HOLLIE called [facility] and updated on pt status and how pt did with PT and upcoming LP test to r/o meningitis today. [facility] RN states they will first need to know results of meningitis test and if pt is positive what type of treatment and recommendations etc to determine if they could accept her back. HOLLIE discussed how pt did with PT and [facility] leaning towards need of SNF but did confirm pt had put in her 30 day notice to move but it could be rescinded and pt could remain at [facility] while making progress towards getting back to baseline to move out with her friend in [place]. Pt currently still has her bed/room at [facility] at this time but will need to be reviewed by RN and [facility] tomorrow 05/05/21 after LP test results back. [facility] requested clinicals not be faxed today but to wait until tomorrow. HOLLIE attempted to call pt's Dtr/DPOA to further discussion of d/c planning of [facility] with HH vs SNF but no answer and vm would not allow SW to leave [facility]. Pt currently not A&O enough for discussion. HOLLIE called [facility] and made initial referral to review in case SNF needed at d/c pending LP test results to r/o meningitis. Plan: SW to follow closely for LP test today to r/o meningitis and further PT/OT and discussion with [facility] to determine return to [facility] with HH vs SNF at d/c. If SNF then PASRR needed, if HH then F2F needed. Hawa Fisher, BUGGY LADLE TENDER
--- NOTE | 2021-05-04 14:17 | OT.IPNOTE ---
Pt getting lumbar puncture procedure, therefore to check on pt later or tomorrow for Ot eval.
[2021-05-04 14:55] LABS: Appearance CSF Clear (Clear); CSF Tube Number 3; CSF Tube Volume 1.0 mL; Color CSF Colorless (Colorless)
[2021-05-04 14:56] LABS: Red Blood Cell CSF 245 RBC /uL; White Blood Cell CSF 5 MONO/uL (0-5)
[2021-05-04 15:03] LABS: Glucose CSF 83 mg/dL (40-70); Total Protein CSF 46 mg/dL (12-60)
[2021-05-04] MEDS: SODIUM CHLORIDE 0.9% 1,000 ML 100 ML IV (15:48)
[2021-05-04 15:57] LABS: Cryptococcus neoformans/gattii Not Detected (Not Detect); Enterovirus Not Detected (Not Detect); Escherichia coli K1 Not Detected (Not Detect); Haemophilus influenzae Not Detected (Not Detect); Herpes simplex virus 1 Not Detected (Not Detect); Herpes simplex virus 2 Not Detected (Not Detect); Human herpesvirus 6 Not Detected (Not Detect); Human parechovirus Not Detected (Not Detect); Listeria monocytogenes Not Detected (Not Detect); Neisseria meningitidis Not Detected (Not Detect); Streptococcus agalactiae Not Detected (Not Detect); Streptococcus pneumoniae Not Detected (Not Detect); Varicella Zoster Virus Not Detected (Not Detecte)
--- NOTE | 2021-05-04 16:28 | DI.MRI.S_ITS ---
PROCEDURE: MR HEAD/BRAIN WO CON INDICATIONS: encephalopathy, poss. CVA TECHNIQUE: Non-contrast axial T1 spin echo, axial T2 fast spin echo, sagittal and axial FLAIR, coronal T2 fast spin echo, axial gradient echo, axial diffusion and ADC through the brain. COMPARISON: [facility], CT, CT ANGIO HEAD AND NECK, 05/02/2021, 12:59. [facility], CT, CT STROKE, 05/02/2021, 12:59. FINDINGS: Image quality: Excellent. CSF spaces: There is prominence of the anterior horn of the right lateral ventricle which is stable compared to prior CT scan and could be related to remote congenital asymmetry, intraventricular arachnoid cyst or / infarct. Basal cisterns are patent. No extra-axial fluid collections. Brain: No intracranial bleeds or mass effects. There is mild cerebral volume loss for age. There are severe pontine, periventricular and deep white matter chronic small vessel ischemic changes. Brainstem appears normal. Small sulci of restricted diffusion noted in the left frontal and parietal lobes compatible with acute/subacute infarcts. Small chronic lacunar infarcts noted in the left basal ganglia, the left internal capsule in the left caudate head. Small chronic lacunar infarcts involving the right cerebellar hemisphere. Normal intravascular flow voids are present. Skull and face: Calvarial bone marrow is normal in signal. Orbits are normal. Sinuses: Sinuses and mastoids are clear. IMPRESSION: 1. Acute/subacute small lacunar infarcts involving the left frontal and parietal lobes. 2. Small chronic lacunar infarcts involving the right cerebellar hemisphere left basal ganglia, left caudate head and left internal capsule. 3. No acute/subacute intracranial hemorrhage. Dictated by: Flaca Man MD, PhD on 05/05/2021 at 15:22 Approved by: Flaca Man MD, PhD on 05/05/2021 at 15:27
--- NOTE | 2021-05-04 16:29 | PM.PN.1 ---
Subjective Subjective Date Patient Seen: 05/04/21 Time Patient Seen: 16:29 Interval history: Patient denies complaints, remains confused but mental status markedly improved. LP negative for evidence of infection. Exam Vital Signs (past 8 hours): - 05/04/21 11:00 05/04/21 11:08 05/04/21 14:30 Temperature 98.8 F 97.7 F Pulse Rate 76 79 Respiratory Rate 14 18 Blood Pressure 159/75 H 112/63 Pulse Oximetry 96 96 94 05/04/21 14:33 05/04/21 15:00 05/04/21 16:00 Temperature 98.5 F 98.6 F 98.2 F Pulse Rate 103 H 94 H 85 Respiratory Rate 20 18 16 Blood Pressure 144/85 H 132/71 127/69 Pulse Oximetry 94 97 95 Oxygen Delivery Method Room Air Oxygen Flow Rate 0 Narrative Exam Narrative: GEN: patient lying in bed, hyperactive, confused, repetitive hand movements, can't sit still HEENT: moist mucous membranes, PERRL NECK: trachea midline, no JVD CV: regular rate and rhythm, no murmurs PULM: clear bilaterally ABD: soft, nontender, nondistended, no organomegaly, normal bowel sounds EXT: warm and well perfused with no edema NEURO: alert and oriented x2, follows commands, moves all extremities. Much improved from the morning. SKIN: no rashes noted Objective Labs Result Diagrams: 05/03/21 04:45 05/03/21 04:45 Labs: Laboratory Results - last 24 hr 05/04/21 05/04/21 05/04/21 14:11 14:11 14:11 CSF Tube Number 3 CSF Volume 1.0 ml CSF Appearance Clear CSF Color Colorless CSF WBC 5 CSF RBC 245 CSF Mononuclear WBCs TNP CSF Polynuclear WBCs TNP CSF Glucose 83 H CSF Total Protein 46 CSF C.neoform/gat PCR Not detected CSF CMV DNA (PCR) Not detected CSF Enterovirus (PCR) Not detected CSF E. coli (PCR) Not detected CSF H. influenzae (PCR) Not detected CSF HSV I (PCR) Not detected CSF HSV II (PCR) Not detected CSF HHV 6 (PCR) Not detected CSF L.monocytogenes PCR Not detected CSF N. meningitidis PCR Not detected CSF Parechovirus (PCR) Not detected CSF S. agalactiae (PCR) Not detected CSF S. pneumoniae (PCR) Not detected CSF VZV (PCR) Not detected PFSH Social History household members: children Smoking Status: Never smoker alcohol intake: never Assessment & Plan Assessment & Plan narrative: Ms. Reynolds presented to the hospital with acute neurologic change 1. Acute encephalopathy, fever -etiology not clear, possible meningitis given fever initially. UDS clear. however LP negative today with WBC of 5 and negative PCR panel. -shortly after admit developed fever, UA negative and no other evidence of active infection. Continue ceftriaxone for unknown possible infection for now, discontinue at day 3. -CT head shows no acute bleed -no evidence of acute stroke on CT head, no large vessel occlusion on CT angio head/neck. -CT head did show read of ex vacuo dilation of right lateral ventricle. -proceed with MRI to r/o CVA given negative LP 2. History of CVA -ordered for aspirin, statin -NIH qshift -PT/OT ordered 3. Hypertension -hold anti-hypertensives for now and restart if patient safe to swallow 4. Hyperlipidemia -continue statin 5. Osteoporosis -hold alendronate 6. Anticoagulated -reason unclear -attempting to get more records -not in afib on initial EKG -depending on MRI results, if no large infarct can resume home AC. CODE: Per CHAU hernandez for CPR, no to intubation Proxy: per notes Debbie Loza, daughter I have utilized all available resources to reconcile patient's home medications. Time Spent With Patient Critical Care time: I spent a total of [] minutes of critical care time on this patient's care today; this time is exclusive of procedural time.
[2021-05-04] MEDS: ATORVASTATIN 20 MG TABLET 80 MG PO (21:08)
[2021-05-05] VITALS (12 sets, daily range): BP systolic 131–160; BP diastolic 77–94; PULSE 70–82; RESP 16–18; TEMP 36.3–36.9; O2SAT 94–96
[2021-05-05] MEDS: MELATONIN 3 MG TABLET 6 MG PO ×2 (00:27→20:04)
[2021-05-05 01:58] LABS: Add Manual Diff / Slide Review NO; Basophils Absolute Auto 0 /uL (0-100); Basophils Percent Auto 0.2 % (0-2); Eosinophils Absolute Auto 0 /uL (0-450); Hematocrit 46.3 % (36-46); Hemoglobin 15.5 g/dL (12.0-16.0); Lymphocytes Absolute Auto 1800 /uL (1100-4500); Lymphocytes Percent Auto 11.9 % (25-40); Mean Corpuscular HGB Conc 33.5 % (30-36); Mean Corpuscular Hemoglobin 32.9 PG (26-34); Mean Corpuscular Volume 98.2 fL (80-100); Monocytes Absolute Auto 1000 /uL (0-900); Monocytes Percent Auto 6.9 % (3-14); Neutrophils Absolute Auto 12000 /uL (1500-7000); Platelet Count 257 X10^3/uL (150-400); Red Blood Cell Count 4.71 X10^6/uL (4.0-5.2); Red Cell Distribution Width 13.2 % (11.6-14.8); White Blood Cell Count 14.8 X10^3/uL (4.5-11.0)
[2021-05-05 02:08] LABS: Alanine Aminotransferase 31 IU/L (<35); Albumin 3.9 g/dL (3.5-5.0); Albumin Globulin Ratio 1.3 (1.0-2.8); Alkaline Phosphatase 65 U/L (38-126); Aspartate Aminotransferase 40 IU/L (14-36); BUN Creatinine Ratio 18.6 (6-22); Bilirubin Total 0.6 mg/dL (0.2-1.3); Blood Urea Nitrogen 11 mg/dL (7-17); Calcium 8.4 mg/dL (8.4-10.2); Carbon Dioxide 23 mmol/L (22-32); Chloride 110 mmol/L (98-107); Estimated Glomerular Filt Rate > 60.0 mL/min (>60); Globulin 3.1 g/dL (1.7-4.1); Glucose 113 mg/dL (80-110); HEMOLYSIS < 15 (0-50); Potassium 3.1 mmol/L (3.4-5.1); Sodium 141 mmol/L (137-145)
--- NOTE | 2021-05-05 02:22 | DI.ECHO.S_ITS ---
[facility] +---------+ [facility] +---------+ : : [address] : : : : [id number] : : : : Phone: [phone]+ Echocardiogram Report + + :Name: CAT NEVAREZ Study Date: 05/05/2021 Height: 60 in : :[facility] ReadingLocation: Weight: 125 lb : : Gender: Female BSA: 1.5 m2 : :: 1945 Age: 75 yrs BP: 149/77 mmHg: :Reason For Study: WORSENING VTACH, ISCHEMIC CARDIOMYOPATHY : :Ordering Physician: AMINTA, : :PIA Performed By: Rashida Pablo : :Referring: PIA LEMOS : + + Interpretation Summary The ejection fraction is estimated to be 25-30%. Left ventricular function has slightly worsened compared to the previous exam. Global hypokinesis with severe hypokinesis of inferolateral wall and basal inferior wall. There is mild mitral regurgitation. There is mild aortic regurgitation. Procedure: A two-dimensional transthoracic echocardiogram with color flow and Doppler was performed. The study quality was technically adequate. Comparison is made with the echocardiogram of 01/06/2021. The patient was in atrial fibrillation with heart rates between 73-86 bpm during the exam. The patient had occasional PVCs during the exam. Left Ventricle: The left ventricle is normal in size and wall thickness. The ejection fraction is estimated to be 25-30%. Left ventricular function has slightly worsened compared to the previous exam. Global hypokinesis with severe hypokinesis of inferolateral wall and basal inferior wall. Septal motion is consistent with conduction abnormality. Diastolic function could not be accurately assessed due to atrial fibrillation. Right Ventricle: The right ventricle is normal size. Right ventricular systolic function is at the lower limits of normal. Atria: The left atrium is mildly dilated. Right atrial size is normal. There is no Doppler evidence for an interatrial shunt. Mitral Valve: The mitral valve is normal in structure and function. There is mild mitral regurgitation. Aortic Valve: The aortic valve is trileaflet. The aortic valve opens well. There is no aortic valve stenosis. There is mild aortic regurgitation. Tricuspid Valve: The tricuspid valve is normal in structure and function. There is trace tricuspid regurgitation. Pulmonic Valve: The pulmonic valve leaflets are thin and pliable; valve motion is normal. There is trace pulmonic regurgitation. Great Vessels: The aortic root is normal size. The dimensions of the ascending aorta are normal. The IVC is of normal diameter and collapses greater than 50% with a sniff. This suggests a low right atrial pressure of 3 mm Hg. Pericardium/ Pleura There is no pericardial effusion. There is no pleural effusion. MMode/2D Measurements & Calculations LVIDd: 5.1 cm LVOT diam: 2.1 cm LVIDs: 4.4 cm Ao root diam: 3.2 cm FS: 14.1 % asc Aorta Diam: 3.3 cm IVSd: 1.1 cm LVPWd: 0.94 cm LV sahu. diameter/BSA (cm/m^2): 3.4 LV sys. diameter/BSA (cm/m^2): 2.9 LA A2 area: 19.5 cm2 RA long axis: 4.6 cm LA A4 area: 15.0 cm2 RA area: 13.9 cm2 LA length (vol): 4.7 cm RA vol: 35.3 ml LA vol: 52.9 ml RA : 23.1 ml/m2 LA vol index: 34.6 ml/m2 IVC diam: 1.4 cm RVD1 (basal): 2.3 cm TAPSE: 1.5 cm Doppler Measurements & Calculations Ao V2 max: 142.2 cm/sec AI P1/2t: 912.8 msec Ao V2 mean: 94.9 cm/sec AI dec slope: 137.7 cm/sec2 Ao max P.1 mmHg Ao mean P.2 mmHg Ao V2 VTI: 24.7 cm MV E max adrian: 87.7 cm/sec PA pr(Accel): 37.9 mmHg MV A max adrian: 1.1 cm/sec MV E/A: 79.7 Med Peak E' Adrian: 3.9 cm/sec E/E' med: 22.8 Lat Peak E' Adrian: 3.8 cm/sec E/E' lat: 23.3 E/e' average: 23.0 MV dec time: 0.14 sec Reading Physician:10:11 AM
[2021-05-05] MEDS: POTASSIUM CHLORIDE IN WATER 10 MEQ/100 ML PIGGYBACK 100 MEQ IV ×4 (02:25→05:44)
[2021-05-05] MEDS: carvediloL 3.125 MG TABLET 6.25 MG PO ×3 (02:33→20:00)
[2021-05-05 02:37] LABS: Creatine Kinase 76 U/L (30-135)
[2021-05-05 02:50] LABS: Troponin I 0.113 ng/mL (0.01-0.034)
--- NOTE | 2021-05-05 08:41 | PC.NURSE ---
Addendum entered by Mackenzie Dumont R.N. 05/05/21 16:42: At 1230, patient had trigeminal pvc's. She has not had anymore runs of vtach, or trigeminal pvc's. Patients heart rate is wnl and regular at this time. She went down for her mri, had another bowel movement and cleaned up. U/A has been sent to lab. Addendum entered by Mackenzie Dumont R.N. 05/05/21 09:17: Patients midline is flushing but not able to get blood back when trying to draw labs. Flushed, will hang iv antibiotic soon. Addendum entered by Mackenzie Dumont R.N. 05/05/21 08:51: aware of Vtach results this morning at 0830 and states that patient has a cardiology consult. Original Note: Assess- Patients echo is complete. Arabella had an 8 beat run of Vtach this morning at 0710 and she is having occasional PVCs. This Rn went to ICU to get tele results. Her heart rate is regular and is 100. She is more clear this morning, incontinent of a small amount of stool and cleaned up. Patient ate breakfast and is now talking to her brother on the phone.
[2021-05-05] MEDS: ASPIRIN EC 81 MG TABLET PO (09:27)
[2021-05-05] MEDS: cefTRIAXone 2,000 MG in SODIUM CHLORIDE 0.9% 100 ML 200 ML IV (09:27)
[2021-05-05] MEDS: ENOXAPARIN 40 MG/0.4 ML SYRINGE SUBCUT (09:28)
[2021-05-05] MEDS: SODIUM CHLORIDE 0.9% FLUSH 10 ML IV ×2 (09:28→20:06)
[2021-05-05 09:50] LABS: HEMOLYSIS < 15 (0-50); Potassium 3.8 mmol/L (3.4-5.1)
[2021-05-05 09:52] LABS: Troponin I 0.105 ng/mL (0.01-0.034)
--- NOTE | 2021-05-05 11:00 | OT.IPNOTE ---
Per rounds, pt not medically appropriate to be seen for therapy, therefore hold OT eval and check on the pt tomorrow.
--- NOTE | 2021-05-05 11:39 | PT-IP ANOTE ---
Per rounds, pt not medically appropriate to be seen today. Will f/u tomorrow if appropriate.
[2021-05-05] MEDS: lisinopriL 5 MG TABLET PO (12:16)
--- NOTE | 2021-05-05 12:22 | CM.DPC ---
DCP Cont: Discussed patient during team rounds. Hospitalist indicated that patient did have LP, negative for mengingitis. Patient is still having some cognitive deficits. He has ordered MRI for patient. Hospitalist anticipates that patient would most likely be ready for discharge by Sunday at the earliest. Spoke to Edel at [facility], and she indicated, she most likely can accept. As is noted, patient was going to discharge from [facility], and move to [place] with a friend. Patient has been independent at her baseline. P: DCP to continue to follow. Edel at [facility] most likely can accept, if patient continues to be weak. Can still fax over clinical information for [facility] to review, per their request. Julia Nunez RN/Livestock Nutritionist
--- NOTE | 2021-05-05 12:34 | ST.IPTN ---
Visit Care Team Role Provider Type PREMA Maynard Primary Care Provider Non-Staff Address: [address] [place], [address] Mook Langston MD Other Providers Physician Address: [address] [place] [address], [place], [address] Ld Farrell DO Emergency Provider Physician Referring Provider Address: [address] [place] [address], [address] Chad Willoughby MD Admit Provider Physician Attending Provider Address: [address] [place] [address], [id number] Fax: [employer] AND [employer]ATCH HANDS PAINTER Treatment Note [employer]ATCH HANDS PAINTER Treatment Note Start: 05/05/21 12:24 Freq: Status: Active Protocol: Document 05/05/21 12:25 ZS (Rec: 05/05/21 12:33 ZS [id number]) Speech Pathology Treatment Note Session Time Visit Start Time 11:40 Visit Stop Time 12:00 Total Visit Minutes 20 Visit Information Visit Number 2 Setting Treatment Setting Acute Care Visit Type Note Type Re-Evaluation Next Note Type Next Note Type Treatment Note General Information General Information Per H&P: Ms. Reynolds is a 75W who presented to the hospital with acute neurologic change. She had been at a facility. She was doing well and plan was to possibly discharge her home within a day. She was seen normal at noon, and then within an hour she was noted to be acute altered. She was unable to follow commands. She was speaking incoherently. She was brought in to the hospital. She was a code stroke. CT head showed large right ventricle secondary to ex vacuo dilation per ED report. There was evidence of old stroke, no evidence of acute ischemia. CT angio head/ neck showed no acute large vessel disease. Labs notable for WBC 7.7, hgb 15.6, creatinine 0.84. She was ordered for aspirin and admitted for further treatment . She was made NPO pending swallow evaluation. Subjective Identification Type Name,ID Wristband Identification Reconciled With ID Bracelet Observations/Patient Presentation Johanen was reclined in bed watching TV when CLOCK AND WATCH HANDS PAINTER arrived. She stated she does not need speech therapy, though agreed to participate in re- evaluation of her cognitive skills. Chief Complaint(s) Cognitive Objective Short Term Goals 1. The pt will follow safe swallow precautions with prompting as needed. 2. The pt will participate in ongoing evaluation/monitoring of cognitive skills. Senior Living Goals 1. The pt will tolerate least restrictive diet to meet her nutrition and hydration needs. Treatment Activities Re-evaluated cognitive skills with SLUMS. Assessment Patient Response to Treatment Good Rehab Potential Excellent Impairments Identified Cognitive-Linguistic Skills Progress Towards Goals Good Progress Assessment of Overall Progress Improving Assessment of Improvement Results of the SLUMS place Johanne's score at 13/30, which indicates moderately- severe cognitive skills. However, Johanne scored a 2/30 on the SLUMS yesterday and demonstrated significant improvement in performance today. She answered all orientation questions accurately, recalled 2/5 objects immediately and 1/5 when asked later. Difficulty with mental math, though manipulation of numbers showed significant improvement. Perseveration noted in generative naming task, with 2 repetitions of zebra. Her clock drawing showed significant improvement and Tesha independently located the clock on the wall and used it as a reference for her drawing. With clock as a reference, Tesha constanza a clock with the correct number of time markers, though spacing was inconsistent. She set the correct time, though the hands were the same length. Recommend continued monitoring of cognitive skills and providing some external and internal tools for memory. Reviewed with Patient Goals,Progress Being Made Patient/Caregiver Understanding Good Plan Provided Patient/Caregiver Instruction Plan of Care,Questions/ Concerns Therapy Recommendations Continue with Current Program
--- NOTE | 2021-05-05 16:25 | P.PN_ITS ---
Subjective Subjective Date Patient Seen: 05/05/21 Time Patient Seen: 16:25 Interval history: Patient denies complaints, remains confused but mental status markedly improved since admission. LP negative for evidence of infection. MRI did reveal small infarcts which may explain her encephalopathy. Exam Vital Signs (past 8 hours): - 05/05/21 09:00 05/05/21 09:30 05/05/21 13:00 Temperature 97.8 F 97.4 F L Pulse Rate 70 76 Respiratory Rate 16 16 Blood Pressure 153/94 H 139/91 H Pulse Oximetry 94 95 96 Oxygen Delivery Method Room Air Oxygen Flow Rate 0 Narrative Exam Narrative: GEN: patient lying in bed, awake and alert, more cooperative today, pleasant. HEENT: moist mucous membranes, PERRL NECK: trachea midline, no JVD CV: regular rate and rhythm, no murmurs PULM: clear bilaterally no wheezes rhonchi or rales. ABD: soft, nontender, nondistended, no organomegaly, normal bowel sounds EXT: warm and well perfused with no edema NEURO: alert and oriented x2, follows commands, moves all extremities. No deficits to light touch. SKIN: no rashes noted, no ecchymosis. Objective Labs Result Diagrams: 05/05/21 01:50 05/05/21 09:15 Labs: Laboratory Results - last 24 hr 05/05/21 05/05/21 05/05/21 01:50 01:50 01:50 WBC 14.8 H D RBC 4.71 Hgb 15.5 Hct 46.3 H MCV 98.2 MCH 32.9 MCHC 33.5 RDW 13.2 Plt Count 257 Neut % (Auto) 81.0 H Lymph % (Auto) 11.9 L Calvert % (Auto) 6.9 Eos % (Auto) 0.0 L Baso % (Auto) 0.2 Neut # (Auto) 22302 H Lymph # (Auto) 1800 Calvert # (Auto) 1000 H Eos # (Auto) 0 Baso # (Auto) 0 Sodium 141 Potassium 3.1 L Chloride 110 H Carbon Dioxide 23 BUN 11 Creatinine 0.59 Estimated GFR > 60.0 BUN/Creatinine Ratio 18.6 Glucose 113 H Calcium 8.4 Magnesium 2.0 Total Bilirubin 0.6 AST 40 H ALT 31 Alkaline Phosphatase 65 Total Creatine Kinase 76 CK-MB (CK-2) TNP CK-MB (CK-2) Rel Index TNP Troponin I 0.113 H Total Protein 7.0 Albumin 3.9 Globulin 3.1 Albumin/Globulin Ratio 1.3 05/05/21 05/05/21 09:15 09:15 WBC RBC Hgb Hct MCV MCH MCHC RDW Plt Count Neut % (Auto) Lymph % (Auto) Calvert % (Auto) Eos % (Auto) Baso % (Auto) Neut # (Auto) Lymph # (Auto) Calvert # (Auto) Eos # (Auto) Baso # (Auto) Sodium Potassium 3.8 Chloride Carbon Dioxide BUN Creatinine Estimated GFR BUN/Creatinine Ratio Glucose Calcium Magnesium Total Bilirubin AST ALT Alkaline Phosphatase Total Creatine Kinase CK-MB (CK-2) CK-MB (CK-2) Rel Index Troponin I 0.105 H Total Protein Albumin Globulin Albumin/Globulin Ratio [facility] Social History household members: children Smoking Status: Never smoker alcohol intake: never Assessment & Plan Assessment & Plan narrative: Ms. Reynolds presented to the hospital with acute neurologic change, found on MRI today to have had an acute CVA. 1. Fever, improved with acute metabolic encephalopathy. -etiology not clear, possible meningitis given fever initially. Patient was treated with ceftriaxone, vancomycin, decadron, and ampicillin empirically. UDS was clear. LP ultimately negative with WBC of 5 and negative PCR panel. -shortly after admit developed fever, UA negative and no other evidence of active infection. Continue ceftriaxone for unknown possible infection for now, will complete 7 day course given presentation with fever to 102 and encephalopathy. Can transition to oral likely at discharge. -MRI did show acute infarcts which may explain encephalopathy. 2. CVA, acute, with history of prior CVA -continue PT/OT -MRI today showed acute/subacute small lacunar infarcts involving the left fr ontal and parietal lobes. As well as prior small infarcts in multiple locations. -given multitude of infarcts, suspect embolic from probable atrial fibrilllation. -CT head shows no acute bleed -no evidence of acute stroke on CT head, no large vessel occlusion on CT angio head/neck. -CT head did show read of ex vacuo dilation of right lateral ventricle. 3. Hypertension -continue home medications 4. Hyperlipidemia -continue statin 5. Osteoporosis -hold alendronate 6. paroxysmal atrial fibrillation -resume home AC 7. chronic systolic heart failure - EF 25-30%, per cardiology report this is slightly worse than prior about 6 months ago. - no evidence of acute exacerbation - multiple runs of SVT, beta stefano resumed, will continue telemetry. CODE: Per CHAU ok for CPR, no to intubation Proxy: per notes Debbie Loza, daughter I have utilized all available resources to reconcile patient's home medications. Time Spent With Patient Critical Care time: I spent a total of [] minutes of critical care time on this patient's care today; this time is exclusive of procedural time. Quality Stroke Symptom Onset Unknown: Yes
[2021-05-05 17:40] LABS: Troponin I 0.074 ng/mL (0.01-0.034)
[2021-05-05] MEDS: ATORVASTATIN 20 MG TABLET 80 MG PO (19:59)
[2021-05-05] MEDS: APIXABAN 5 MG TABLET PO (20:06)
[2021-05-05] MEDS: TRAZODONE 50 MG TABLET PO (23:07)
[2021-05-06] VITALS (7 sets, daily range): BP systolic 94–128; BP diastolic 63–71; PULSE 73–79; RESP 14–18; TEMP 36.2–37.6; O2SAT 93–97
[2021-05-06 05:10] LABS: Alanine Aminotransferase 25 IU/L (<35); Albumin 3.6 g/dL (3.5-5.0); Albumin Globulin Ratio 1.2 (1.0-2.8); Alkaline Phosphatase 47 U/L (38-126); Aspartate Aminotransferase 29 IU/L (14-36); BUN Creatinine Ratio 18.5 (6-22); Bilirubin Total 0.9 mg/dL (0.2-1.3); Blood Urea Nitrogen 12 mg/dL (7-17); Calcium 8.7 mg/dL (8.4-10.2); Carbon Dioxide 28 mmol/L (22-32); Chloride 107 mmol/L (98-107); Estimated Glomerular Filt Rate > 60.0 mL/min (>60); Globulin 2.9 g/dL (1.7-4.1); Glucose 93 mg/dL (80-110); HEMOLYSIS 16 (0-50); Magnesium 2.1 mg/dL (1.6-2.3); Phosphorous 3.5 mg/dL (2.8-4.1); Potassium 3.5 mmol/L (3.4-5.1); Sodium 138 mmol/L (137-145); Total Protein 6.5 g/dL (6.3-8.2)
[2021-05-06] MEDS: TRAMADOL 50 MG TABLET PO (05:59)
[2021-05-06] MEDS: carvediloL 3.125 MG TABLET 6.25 MG PO (08:37)
[2021-05-06] MEDS: cefTRIAXone 2,000 MG in SODIUM CHLORIDE 0.9% 100 ML 200 ML IV (08:37)
[2021-05-06] MEDS: ASPIRIN EC 81 MG TABLET PO (08:37)
[2021-05-06] MEDS: APIXABAN 5 MG TABLET PO (08:37)
[2021-05-06] MEDS: lisinopriL 5 MG TABLET PO (08:37)
--- NOTE | 2021-05-06 09:47 | OT.IP.EVAL ---
Current Diagnoses Encephalopathy, unspecified (05/02/21) Occupational Therapy Inpatient Evaluation/Re-Eval M1 PT/OT-IP Prior Functional Status Start: 05/04/21 12:07 Freq: NEEDED Status: Active Protocol: Document 05/06/21 13:04 [facility] (Rec: 05/06/21 13:18 [facility] [id number]) Medical Review Prior Functional Status Medical History Reviewed Yes Communication able to make needs known but with confusion Mobility and Gait pt stated that she is independent with all mobilities and ambulation without AD Activities of Daily Living and IADL's Pt states prior able to do all her needs and that the staff at [facility] would give her medications and provide meals for her. Social History Home Environment Standard Height Toilet,Walk in Shower Home Equipment Grab Bars Near Toilet,Grab Bars In Shower Additional Social History Comment Pt states plan on living with her ex- so that she can live there for free in exchange for caring from his that has dementia. M2 OT-IP Current Condition Start: 05/06/21 13:04 Freq: Status: Active Protocol: Document 05/06/21 13:04 [facility] (Rec: 05/06/21 13:18 [facility] [id number]) Occupational Therapy Current Condition Current Condition Evaluation Date 05/06/21 Treatment Diagnosis Acute encephalopathy Diagnosis Onset Date 05/02/21 M3 OT- IP Subjective and Pain Start: 05/06/21 13:04 Freq: Status: Active Protocol: Document 05/06/21 13:04 [facility] (Rec: 05/06/21 13:18 [facility] [id number]) OT- Subjective Occupational Therapy Visit Type Type Initial Evaluation Visit Start Time 09:15 Visit Stop Time 09:47 Total Visit Minutes 32 Occupational Therapy Visit Comments Patient Comments Pt agreed to get up to do grooming at the sink. Patient/Caregiver Goals To go to her ex- house. OT Pain Assessment Pain When Pain Assessed At Rest Pain Present Pain Present Denied Pain M4 OT- IP ADL's Start: 05/06/21 13:04 Freq: Status: Active Protocol: Document 05/06/21 13:04 [facility] (Rec: 05/06/21 13:18 [facility] [id number]) OT POR-Uech-Dcaqqox General Evaluation Self-Feeding Ability Independent OT ADL-Grooming General Evaluation Grooming Ability Independent OT ADL-Oral Care General Eval Oral Care Ability Independent OT ADL-Dressing General Eval Lower Body Dressing Ability Standby Assistance Comments OT Dressing Comments Pt vc as getting sock orientation confused and increased time to handy socks while in the bed. M5 OT- IP IADL's Start: 05/06/21 13:04 Freq: Status: Active Protocol: Document 05/06/21 13:04 [facility] (Rec: 05/06/21 13:18 [facility] [id number]) OT-Instrumental Activities of Daily Living Home Safety Awareness Ability to Problem Solve Emergency Able to Problem Solve Situations M6 OT- IP Functional Cognition Start: 05/06/21 13:04 Freq: Status: Active Protocol: Document 05/06/21 13:04 [facility] (Rec: 05/06/21 13:18 [facility] [id number]) Cognitive Factors Limiting Selfcare Function Cognitive Ability Level of Alertness Alert Patient Orientation Name,Situation Attention Span Ability Capable of Focused Attention, Capable of Sustained Attention Ability to Follow Commands Able to Follow One Step Commands Cognitive Comments Cognitive Assessment Comments Pt able to follow commands but a little forgetful at times . Would be best to have a formal cognitive assessment completed. Pt feels that she is capable of being a caregiver at this time even though she is needing to use a walker at this time. Pt however does agree that she is not at her baseline. OT- Vision and Hearing OT- Hearing Assessment OT- Hearing Assessment WFL OT- Vision Assessment Visual Acuity Glasses All The Time M7 OT- IP Mobility and Balance Start: 05/06/21 13:04 Freq: Status: Active Protocol: Document 05/06/21 13:04 [facility] (Rec: 05/06/21 13:18 [facility] [id number]) OT- Bed Mobility Assessment Rolling Type of Rolling Roll to Left Level of Assistance Standby Assistance Supine to Sit Supine to Sit Assist Standby Assistance OT-Transfer Assessment Sit to and From Stand Sit to and from Stand Contact Guard Assistance Transfers Transfer Ability Contact Guard Assistance Technique Transfer Destination Bed,Chair Transfer Technique Stand Step Pivot Devices Transfer Assistive Devices Gait Belt,Front Wheeled Walker Comments Mobility Comments CGA and occasional vc to keep the walker closer to her. OT- Balance Assessment Sitting Balance and Reactions Static Sitting Balance Ability Good Dynamic Sitting Balance Ability Fair Standing Balance and Reactions Static Standing Balance Ability Fair M8 OT- IP Objective Assessments Start: 05/06/21 13:04 Freq: Status: Active Protocol: Document 05/06/21 13:04 [facility] (Rec: 05/06/21 13:18 [facility] [id number]) OT Gross Range of Motion Upper Extremity Range of Motion Assessment Within Functional Limits OT Strength Upper Extremity Strength Assessment Within Functional Limits OT-Muscle Tone Assessment Muscle Tone WNL Yes M9 OT- IP Assessment and Plan Start: 05/06/21 13:04 Freq: Status: Active Protocol: Document 05/06/21 13:04 [facility] (Rec: 05/06/21 13:18 [facility] [id number]) OT Summary Assessment and Plan Potential Rehabilitation Potential Good Analytic Complexity at Evaluation Moderate Summary OT Impairments Balance,Functional Cognition, Functional Mobility,Dressing, Toileting,Bathing,Toilet Transfers,Shower Transfers, Activity Tolerance Progress Towards Goals Progressing Toward Goals Assessment Summary Pt MODA complexity due to acute encephalopathy and now dong much better however still needing CGA to SBA for mobility needs. Pt is a bit forgetful and insistent that she will be fine and wanting to move in with her ex- to care for his with dementia. A formal cognitive assessment would be beneficial . Pt would benefit form skilled rehab to help get to her prior level of being completely independent with all needs. Goals Grooming Goal Independent Dressing Goal Independent Toileting Goal Independent Bathing Goal Independent Toilet Transfer Goal Independent Shower Transfer Goal Independent Days to Meet Goals 10 Treatment Plan OT Treatment Plan ADL Training,Functional Cognition Training,Functional Mobility,Patient/Family Education,Discharge Planning Discharge Recommendations OT Discharge Recommendations SNF Rehab Transportation Needs at Discharge Wheelchair/Cabulance
--- NOTE | 2021-05-06 10:26 | PC.NURSE ---
Addendum entered by Mackenzie Dumont R.N. 05/06/21 14:59: Patients NIH stroke scale a 0. Addendum entered by Mackenzie Dumont R.N. 05/06/21 14:57: Patient is going to be going to SNF, report to be called as soon as Mojgan answers her phone to [facility] Original Note: Assess- Patient is alert and oriented x2/3. She worked with OT and is walking with walker. Yoon is patent with yellow urine. Patient had a 7 beat run of vtach with 30 s of trigemany and the went back into NSR. Dr. Bolanos notified at 1035 with no new orders.
--- NOTE | 2021-05-06 11:19 | PM.DS.1 ---
History of Present Illness History of Present Illness Date Patient Seen: 05/06/21 Time Patient Seen: 11:19 Chief complaint: Code Stroke Narrative: Per Dr. Willoughby, Ms. Reynolds is a 75W who presented to the hospital with acute neurologic change. She had been at a facility. She was doing well and plan was to possibly discharge her home within a day. She was seen normal at noon, and then within an hour she was noted to be acute altered. She was unable to follow commands. She was speaking incoherently. She was brought in to the hospital. In the ED workup was done, she was noted to have mild hypertension initially. She was a code stroke. CT head showed large right ventricle secondary to ex vacuo dilation per ED report. There was evidence of old stroke, no evidence of acute ischemia. CT angio head/neck showed no acute large vessel disease. Labs notable for WBC 7.7, hgb 15.6, creatinine 0.84. She was ordered for aspirin and admitted for further treatment. Past medical history: to be obtained Social history: not able to obtain due to encephalopathy Family history: not able to obtain due to encephalopathy Discharge Providers Provider Date of admission: 05/02/21 14:44 Discharge Date: 05/06/21 Primary care physician: PREMA Maynard Consults: 05/02/21 15:43 Consult to Occupational Therapy Evaluate & Treat Comment: Physician Instructions: Evaluate and treat Consult to Physical Therapy Evaluate & Treat Comment: Physician Instructions: Evaluate and Treat Consult to Speech Therapy Evaluate & Treat Comment: Physician Instructions: Evaluate and treat 05/02/21 18:06 Consult to Dietitian, Adult Routine Comment: Reason For Exam: mini nutrition exam on admit/ST consult/NPO 05/05/21 02:52 Consult to Cardiology Routine Comment: Consulting Provider: Mook Langston Reason for consultation: Increasing V-Tach Has provider been notified: Yes Discharge provider: Jose M Bolanos DO Summary Hospital Course Discharge Diagnosis: Please see hospital course by problem list noted below. Hospital Course: Ms. Reynolds presented to the hospital with acute neurologic change, found on MRI today have had an acute CVA. 1. Fever, improved with acute metabolic encephalopathy, improving. -etiology not clear initially, possible meningitis given fever initially. Patient was treated with ceftriaxone, vancomycin, decadron, and ampicillin empirically. UDS was clear. LP ultimately negative with WBC of 5 and negative PCR panel. -shortly after admit developed fever, UA negative and no other evidence of active infection. Continue ceftriaxone for unknown possible infection for now, will complete 7 day course given presentation with fever to 102 and encephalopathy. Transitioned to oral at discharge. -MRI did show acute infarcts which may explain encephalopathy and possibly fever. -through the course of admission, the patient's mentation continued to improve slowly though she never returned to her prior baseline. Reason for her severe encephalopathy at presentation is not entirely clear, but her current decline is consistent with her MRI findings of acute and subacute lacunar infarcts in the left frontal and parietal lobes. 2. CVA, acute, with history of prior CVA -MRI showed acute/subacute small lacunar infarcts involving the left frontal and parietal lobes. As well as prior small infarcts in multiple locations. -given multitude of infarcts, suspect embolic from probable atrial fibrilllation. -CT head showed no acute bleed -no evidence of acute stroke on CT head, no large vessel occlusion on CT angio head/neck. -CT head did show read of ex vacuo dilation of right lateral ventricle. 3. Hypertension -resume home medications on discharge. These were held initially given presumption of meningitis at first presentation. 4. Hyperlipidemia -continue statin on discharge. 5. Osteoporosis -held alendronate, safe to resume at discharge. 6. paroxysmal atrial fibrillation -resumed home AC, initially was held prior to LP. 7. chronic systolic heart failure ?- EF 25-30%, per cardiology report this is slightly worse than prior about 6 months ago. ?- no evidence of acute exacerbation ?- multiple runs of NSVT, beta stefano resumed with slight improvement. Patient was asymptomatic during epidoses. 8. Myocardial ischemia - elevated troponin was likely in the setting of demand from acute CVA, fever, and encephalopathy. Initial troponin that was checked subsequently declined and EKG did not reveal acute ischemia though she had many runs of NSVT which were asymptomatic on telemetry. - continue patient's home beta stefano. Dispo: transfer to SNF. Time Spent with Patient Time spent: Greater than 30 minutes Exam Vital Signs (past 8 hours): - 05/06/21 04:00 05/06/21 05:54 05/06/21 08:00 Temperature 97.2 F L 97.7 F Pulse Rate 76 73 Respiratory Rate 17 14 Blood Pressure 94/63 128/69 Pulse Oximetry 96 96 95 05/06/21 10:14 Temperature Pulse Rate Respiratory Rate Blood Pressure Pulse Oximetry 97 Oxygen Delivery Method Room Air Oxygen Flow Rate 0 Narrative Exam Narrative: GEN: patient lying in bed, awake and alert, more cooperative today, pleasant. HEENT: moist mucous membranes, PERRL NECK: trachea midline, no JVD CV: regular rate and rhythm, no murmurs PULM: clear bilaterally no wheezes rhonchi or rales. ABD: soft, nontender, nondistended, no organomegaly, normal bowel sounds EXT: warm and well perfused with no edema NEURO: alert and oriented x2, follows commands, moves all extremities. No deficits to light touch. SKIN: no rashes noted, no ecchymosis. Objective Labs Result Diagrams: 05/05/21 01:50 05/06/21 04:10 Labs: Laboratory Results - last 24 hr 05/05/21 05/06/21 17:05 04:10 Sodium 138 Potassium 3.5 Chloride 107 Carbon Dioxide 28 BUN 12 Creatinine 0.65 Estimated GFR > 60.0 BUN/Creatinine Ratio 18.5 Glucose 93 Calcium 8.7 Phosphorus 3.5 Magnesium 2.1 Total Bilirubin 0.9 AST 29 ALT 25 Alkaline Phosphatase 47 Troponin I 0.074 H Total Protein 6.5 Albumin 3.6 Globulin 2.9 Albumin/Globulin Ratio 1.2 [facility] Social History household members: children Smoking Status: Never smoker alcohol intake: never Discharge Plan Discharge Plan Patient Disposition: SNF Transfer to: [facility] Provider Discharge Comment: Patient was admitted with altered mental status, developed fever shortly after admission. LP negative for meningitis, found to have new strokes due to atrial fibrillation after extensive evaluation. Fever source not found but given severity of presentation will continue on oral antibiotics as an outpatient for an additional 4 days. Discharge orders & Medications Prescriptions: New aspirin 81 mg Tablet,Delayed Release (Dr/Ec) 81 mg PO DAILY 30 Days 0RF melatonin 3 mg Tablet 6 mg PO BEDTIME 30 Days Qty: 60 0RF cefdinir 300 mg capsule 300 mg PO BID 4 Days Qty: 8 0RF Continued acetaminophen 325 mg tablet 325 mg PO Q6HR PRN (Reason: Pain (Scale Score 4-6)) 0RF alendronate 70 mg tablet 70 mg PO WEEKLY 0RF atorvastatin 40 mg tablet 40 mg PO DAILY 0RF carvedilol 6.25 mg tablet 6.25 mg PO BID 0RF docusate sodium 100 mg capsule 100 mg PO BID 0RF famotidine 20 mg tablet 20 mg PO BID 0RF Eliquis 5 mg tablet 5 mg PO BID 0RF ferrous sulfate [FeroSul] 325 mg (65 mg iron) tablet 325 mg PO DAILY 0RF lisinopril 5 mg tablet 5 mg PO DAILY 0RF oxybutynin chloride 5 mg tablet 5 mg PO BID 0RF polyethylene glycol 3350 17 gram/dose powder 17 g PO DAILY PRN (Reason: Constipation) 0RF tramadol 50 mg tablet 50 mg PO BID PRN (Reason: Pain (Scale Score 4-6)) 0RF trazodone 50 mg tablet 25 mg PO BEDTIME 0RF Follow up/Referrals: Pippa Rivas ARNP [Primary Care Provider] - Discharge Health Status Multidrug resistant organism: No MDRO Diet/Activity/Treatments Diet: Diet as Tolerated and Low-sodium Diet comment: Per speech therapy Easy to Chew diet. Activity: As tolerated Catheter: 2-way Yoon Discharge Data Primary Care Provider: Pippa Rivas Quality Stroke Symptom Onset Unknown: Yes
--- NOTE | 2021-05-06 11:29 | ST.OPTN ---
Visit Care Team Role Provider Type PREMA Maynard Primary Care Provider Non-Staff Address: [address] [place], [address] Mook Langston MD Other Providers Physician Address: [address] [place] [address], [place], [address] Ld Farrell DO Emergency Provider Physician Referring Provider Address: [address] [place] [address], [id number] Chad Willoughby MD Admit Provider Physician Attending Provider Address: [address] [place] [address], [id number] Fax: PER[employer]ECT B[employer]ER FEEDER OFFBEARER Treatment Note [employer]ER FEEDER OFFBEARER Treatment Note Start: 05/05/21 12:24 Freq: Status: Active Protocol: Document 05/06/21 11:25 [facility] (Rec: 05/06/21 11:29 ZS [id number]) Speech Pathology Treatment Note Session Time Visit Start Time 08:50 Visit Stop Time 09:05 Total Visit Minutes 15 Visit Information Visit Number 3 Setting Treatment Setting Acute Care Visit Type Note Type Treatment Note Next Note Type Next Note Type Treatment Note General Information General Information Per H&P: Ms. Reynolds is a 75W who presented to the hospital with acute neurologic change. She had been at a facility. She was doing well and plan was to possibly discharge her home within a day. She was seen normal at noon, and then within an hour she was noted to be acute altered. She was unable to follow commands. She was speaking incoherently. She was brought in to the hospital. She was a code stroke. CT head showed large right ventricle secondary to ex vacuo dilation per ED report. There was evidence of old stroke, no evidence of acute ischemia. CT angio head/ neck showed no acute large vessel disease. Labs notable for WBC 7.7, hgb 15.6, creatinine 0.84. She was ordered for aspirin and admitted for further treatment . She was made NPO pending swallow evaluation. Subjective Identification Type Name,ID Wristband Identification Reconciled With ID Bracelet Observations/Patient Presentation Johanne was reclined in bed watching TV when PER[employer]ECT BINDER FEEDER OFFBEARER arrived. She agreed to participate in therapy activities and indicated she has some difficulty remembering things. Johanne added her mother had Alzheimer's and at 77 years old. Chief Complaint(s) Cognitive Objective Short Term Goals 1. The pt will follow safe swallow precautions with prompting as needed. 2. The pt will participate in ongoing evaluation/monitoring of cognitive skills. Lead Painter Goals 1. The pt will tolerate least restrictive diet to meet her nutrition and hydration needs. Treatment Activities Provided patient education regarding memory and strategies for word finding and memory. Practiced strategy for word finding. Assessment Patient Response to Treatment Good Rehab Potential Excellent Impairments Identified Cognitive-Linguistic Skills Progress Towards Goals Good Progress Assessment of Overall Progress Improving Assessment of Improvement Johanne expressed understanding when PER[employer] B[employer]ER FEEDER OFFBEARER discussed writing things down to remember or having others write things down. She expressed understanding of identifying semantic features of words when having difficulty naming words or using visualization when working on generative naming or word recall tasks. Johanne demonstrated understanding of semantic features as she completed practice identifying features for cup. Reviewed with Patient Goals,Progress Being Made Patient/Caregiver Understanding Good Plan Provided Patient/Caregiver Instruction Plan of Care,Questions/ Concerns Therapy Recommendations Continue with Current Program
--- NOTE | 2021-05-06 11:29 | CM.DPC ---
DCP Cont: Discussed patient during team rounds. Patient had not noted recent confusion, and is medically ready to discharge today. She had also been having some cardiac issues. Called Edel at [facility], for she was working on insurance authorization. Edel then called back and stated that she did get insurance auth and can take today. She stated that she should be able to diamond picker patient at approximately 1500. Updated hospitalist, Dr. Bolanos, he is working on discharge, and updated nurse, Mackenzie, they will obtain a rapid COVID. Updated patient as well, she was sitting up in her chair by the window, quiet demeanor. Completed PASSR, indicated on PASSR that patient was admitted with some confusion, encephaloparhy, has resolved, no recent anxiety meds since 05/03. Will await medication sheets, and will fax them to [facility] along with PASSR. Edel indicated that she should be able to get vaccine information from [place]. P: Patient is to be discharged to [facility] today with diamond picker at 1500. Will fax over orders when completed. Julia Nunez RN/Inspector Cold Working
[2021-05-06 13:49] LABS: COVID19 -Nasal RAPID Negative (Negative)
== END 2021-05-06 15:00 | DRG 70 ==
LOC: ED 14:39 → AC 14:59
PROVIDERS: Internal Medicine; Nurse Practitioner Family; Admitting Provider Internal Medicine; Emergency Provider Emergency Medicine; PCP Nurse Practitioner Gerontology; Referring Provider Emergency Medicine; Visit Provider Internal Medicine
DX: G93.41 Metabolic encephalopathy (principal); I63.40 Cerebral infarction due to embolism of unspecified cerebral artery; I47.2 Ventricular tachycardia; I50.22 Chronic systolic (congestive) heart failure; I24.8 Other forms of acute ischemic heart disease; I11.0 Hypertensive heart disease with heart failure; E78.5 Hyperlipidemia, unspecified; I48.0 Paroxysmal atrial fibrillation; M81.0 Age-related osteoporosis without current pathological fracture; R29.706 NIHSS score 6; R29.719 NIHSS score 19; Z86.73 Personal history of transient ischemic attack (TIA), and cerebral infarction without residual deficits; Z79.01 Long term (current) use of anticoagulants; Z20.822 Contact with and (suspected) exposure to COVID-19
CPT/HCPCS: 36415; 62270; 70450; 70496; 70498; 70551; 71045; 76000; 80048; 80053; 80305; 80320; 80329; 81001; 82140; 82550; 82945; 82962; 83605; 83690; 83735; 84100; 84132; 84157; 84443; 84484; 85025; 85610; 85730; 87040; 87045; 87070; 87077; 87086; 87186; 87205; 87635; 87798; 87899; 89051; 92507; 92610; 93005; 93306; 94760; 96125; 97162; 97165; 99284; C9803; G0378; G0480; J0290; J0696; J1100; J1630; J1650; J2060; Q9967